=== PATIENT | female | born 1955 | race Caucasian/White ===

== ENCOUNTER → 2017-01-08 | Outpatient (CLI) | payer OTHER ==
[~2017-01-08] VITALS: Ht 170.2 cm; Wt 78.0 kg
[~2017-01-08] MED LIST: LIDOCAINE 2% INJ 100 MG/5 ML SDV (FOR ANES.) As Ordered ONE; NS 1,000 ML IV SCH; PROPOFOL 200 MG/20 ML VIAL As Ordered ONE; TYLE325T5 PO
--- NOTE | 2017-01-08 12:09 | ROOR ---
Patient Name: Clarissa Hurst Procedure Date: 01/08/2017 11:20 AM Date of : 1955 Age: 61 Room: [facility] Gender: Female Note Status: Finalized Procedure: Colonoscopy Indications: Screening in patient at increased risk: Colorectal cancer in child before age 60, (age 25) Providers: Anson CALVIN MD Referring MD: AIXA Gaytan PA-C Requesting Provider: Medicines: Monitored Anesthesia Care Complications: No immediate complications. Procedure: Pre-Anesthesia Assessment: - The heart rate, respiratory rate, oxygen saturations, blood pressure, adequacy of pulmonary ventilation, and response to care were monitored throughout the procedure. The Colonoscope was introduced through the anus and advanced to the cecum, identified by appendiceal orifice and ileocecal valve. The colonoscopy was performed without difficulty. The patient tolerated the procedure well. The quality of the bowel preparation was good. Findings: The digital rectal exam revealed a rubbery-textured rectal mass palpated 4.0 cm from the anal verge. The mass was non-circumferential and located predominantly at the posterior bowel wall. A fungating non-obstructing medium-sized mass was found in the mid rectum. The mass was partially circumferential (involving one-third of the lumen circumference). The mass measured four cm in length. Mucosa was biopsied with a cold forceps for histology. A 15 mm polyp was found in the proximal ascending colon. The polyp was sessile. The polyp was removed with a piecemeal technique using a hot snare. Resection and retrieval were complete. Area was tattooed with an injection of Leta ink. Impression: - Rectal mass 4.0 cm from the anal verge. 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 Biopsied. - One 15 mm polyp in the proximal ascending colon, removed piecemeal using a hot snare. Resected and retrieved. Tattooed. Recommendation: - Refer to a surgeon at appointment to be scheduled. - I will be in touch with you by phone as soon as get thr pathology report back. We will make plans as soon as I get the pathology report back. Anson Calvin MD Anson CALVIN MD 01/08/2017 12:09:03 PM This report has been signed electronically. Number of Addenda: 0 Note Initiated On: 01/08/2017 11:20 AM Estimated Blood Loss: Estimated blood loss: none.
[2017-01-08 12:20] VITALS: BP 131/69
== END ==
LOC: M OPP 10:46
PROVIDERS: ATTEND Internal Medicine Gastroenterology
DX: Z12.11 Encounter for screening for malignant neoplasm of colon (principal); C20 Malignant neoplasm of rectum; K62.89 Other specified diseases of anus and rectum; M54.5 Low back pain; Z80.3 Family history of malignant neoplasm of breast; Z80.0 Family history of malignant neoplasm of digestive organs; F17.210 Nicotine dependence, cigarettes, uncomplicated; Z79.82 Long term (current) use of aspirin; Z79.899 Other long term (current) drug therapy

== ENCOUNTER → 2018-09-16 | Outpatient (REF) | payer OTHER | LOC: M SFHCLACO 15:15 | DX: R31.9 Hematuria, unspecified (principal) | CPT/HCPCS: 87186 ==

== ENCOUNTER → 2018-09-16 | Outpatient (REF) | payer OTHER | LOC: M SFHCLACO 09:38 | DX: R31.9 Hematuria, unspecified (principal) ==

== ENCOUNTER → 2018-09-21 | Outpatient (REF) | payer OTHER ==
[2018-09-21 12:45] LABS: ALBUMIN 4.3 GM/DL (3.2-5.2); ALBUMIN/GLOBULIN RATIO 1.34 (1.00-1.93); ALKALINE PHOSPHATASE 135 U/L (45-117); ALT/SGPT 37 U/L (12-78); ANION GAP 7 MEQ/L (8-16); AST/SGOT 22 U/L (7-37); BILIRUBIN,TOTAL 0.7 MG/DL (0.2-1.0); BLOOD UREA NITROGEN 13 MG/DL (7-18); CALCIUM LEVEL 9.5 MG/DL (8.8-10.2); CARBON DIOXIDE LEVEL 28 MEQ/L (21-32); CHLORIDE LEVEL 103 MEQ/L (98-107); CHOLESTEROL LEVEL 354 MG/DL (<200); CHOLESTEROL RISK RATIO 7.695 (<5); CREATININE FOR GFR 1.08 MG/DL (0.55-1.30); GLOMERULAR FILTRATION RATE 54.9 (>45); GLUCOSE, FASTING 115 MG/DL (70-100); HDL CHOLESTEROL 46 MG/DL (>40); LDL CHOLESTEROL 268 MG/DL (<100); NON-HDL-C 308 MG/DL; POTASSIUM SERUM 4.6 MEQ/L (3.5-5.1); SODIUM LEVEL 138 MEQ/L (136-145); TOTAL PROTEIN 7.5 GM/DL (6.4-8.2); TRIGLYCERIDES LEVEL 199 MG/DL (<150)
[2018-09-21 12:46] LABS: TOTAL 25(OH) VITAMIN D 21.1 NG/ML (30.0-100.0)
== END ==
LOC: M SFHCADAM 08:45
DX: Z00.00 Encounter for general adult medical examination without abnormal findings (principal)

== ENCOUNTER → 2018-10-10 | Outpatient (CLI) | payer OTHER | LOC: M WHC 09:45 | DX: Z12.31 Encounter for screening mammogram for malignant neoplasm of breast (principal); Z78.0 Asymptomatic menopausal state; L72.3 Sebaceous cyst; M81.0 Age-related osteoporosis without current pathological fracture; Z92.89 Personal history of other medical treatment; Z80.3 Family history of malignant neoplasm of breast | CPT/HCPCS: 77067 ==

== ENCOUNTER → 2018-10-11 | Outpatient (CLI) | payer OTHER | LOC: M CARPUL 09:23 | DX: R01.1 Cardiac murmur, unspecified (principal); R09.89 Other specified symptoms and signs involving the circulatory and respiratory systems; I35.8 Other nonrheumatic aortic valve disorders | CPT/HCPCS: 93880 ==

== ENCOUNTER → 2019-01-19 | Outpatient (REF) | payer OTHER ==
[~2019-01-19] MED LIST changes: -LIDOCAINE 2% INJ 100 MG/5 ML SDV (FOR ANES.) As Ordered ONE; -NS 1,000 ML IV SCH; -PROPOFOL 200 MG/20 ML VIAL As Ordered ONE
[2019-01-19 13:25] LABS: BLOOD UREA NITROGEN 7 MG/DL (7-18); CALCIUM LEVEL 8.6 MG/DL (8.8-10.2); CARBON DIOXIDE LEVEL 27 MEQ/L (21-32); CHLORIDE LEVEL 104 MEQ/L (98-107); GLOMERULAR FILTRATION RATE > 60.0 (>45); GLUCOSE, FASTING 105 MG/DL (70-100); POTASSIUM SERUM 4.4 MEQ/L (3.5-5.1); SODIUM LEVEL 139 MEQ/L (136-145)
[2019-01-19 13:26] LABS: ALBUMIN 3.6 GM/DL (3.2-5.2); ALT/SGPT 20 U/L (12-78); CHOLESTEROL LEVEL 264 MG/DL (<200); CHOLESTEROL RISK RATIO 7.333 (<5); HDL CHOLESTEROL 36 MG/DL (>40); LDL CHOLESTEROL 195 MG/DL (<100); NON-HDL-C 228 MG/DL; TOTAL 25(OH) VITAMIN D 56.4 NG/ML (30.0-100.0); TOTAL PROTEIN 7.1 GM/DL (6.4-8.2); TRIGLYCERIDES LEVEL 164 MG/DL (<150)
== END ==
LOC: M SFHCADAM 10:13
PROVIDERS: ATTEND Physician Assistant
DX: E78.2 Mixed hyperlipidemia (principal); E03.9 Hypothyroidism, unspecified; E55.9 Vitamin D deficiency, unspecified

== ENCOUNTER → 2019-04-13 | Outpatient (REF) | payer OTHER ==
[2019-04-13 13:56] LABS: ALBUMIN 3.5 GM/DL (3.2-5.2); ALT/SGPT 20 U/L (12-78); BILIRUBIN,TOTAL 0.5 MG/DL (0.2-1.0); BLOOD UREA NITROGEN 13 MG/DL (7-18); CALCIUM LEVEL 8.4 MG/DL (8.8-10.2); CARBON DIOXIDE LEVEL 27 MEQ/L (21-32); CHLORIDE LEVEL 108 MEQ/L (98-107); CHOLESTEROL LEVEL 178 MG/DL (<200); CHOLESTEROL RISK RATIO 3.296 (<5); CREATININE FOR GFR 0.77 MG/DL (0.55-1.30); GLOMERULAR FILTRATION RATE > 60.0 (>45); GLUCOSE, FASTING 106 MG/DL (70-100); HDL CHOLESTEROL 54 MG/DL (>40); LDL CHOLESTEROL 110 MG/DL (<100); NON-HDL-C 124 MG/DL; POTASSIUM SERUM 4.7 MEQ/L (3.5-5.1); SODIUM LEVEL 141 MEQ/L (136-145); TOTAL 25(OH) VITAMIN D 79.5 NG/ML (30.0-100.0); TOTAL PROTEIN 6.8 GM/DL (6.4-8.2); TRIGLYCERIDES LEVEL 68 MG/DL (<150)
== END ==
LOC: M SFHCADAM 08:12
PROVIDERS: ATTEND Physician Assistant
DX: E78.2 Mixed hyperlipidemia (principal); E03.9 Hypothyroidism, unspecified; E55.9 Vitamin D deficiency, unspecified

== ENCOUNTER → 2019-10-09 | Outpatient (REF) | payer OTHER ==
[2019-10-09 12:57] LABS: TOTAL 25(OH) VITAMIN D 79.5 NG/ML (30.0-100.0)
[2019-10-09 12:59] LABS: ALBUMIN 3.5 GM/DL (3.2-5.2); ALT/SGPT 24 U/L (12-78); BILIRUBIN,TOTAL 0.6 MG/DL (0.2-1.0); BLOOD UREA NITROGEN 13 MG/DL (7-18); CALCIUM LEVEL 8.4 MG/DL (8.8-10.2); CARBON DIOXIDE LEVEL 31 MEQ/L (21-32); CHLORIDE LEVEL 106 MEQ/L (98-107); CHOLESTEROL LEVEL 177 MG/DL (<200); CHOLESTEROL RISK RATIO 3.765 (<5); CREATININE FOR GFR 0.83 MG/DL (0.55-1.30); GLOMERULAR FILTRATION RATE > 60.0 (>45); GLUCOSE, FASTING 132 MG/DL (70-100); HDL CHOLESTEROL 47 MG/DL (>40); LDL CHOLESTEROL 105 MG/DL (<100); NON-HDL-C 130 MG/DL; POTASSIUM SERUM 4.8 MEQ/L (3.5-5.1); SODIUM LEVEL 141 MEQ/L (136-145); TOTAL PROTEIN 6.5 GM/DL (6.4-8.2); TRIGLYCERIDES LEVEL 124 MG/DL (<150)
== END ==
LOC: M SFHCADAM 08:42
PROVIDERS: ATTEND Physician Assistant
DX: E78.2 Mixed hyperlipidemia (principal); E03.9 Hypothyroidism, unspecified; E55.9 Vitamin D deficiency, unspecified

== ENCOUNTER → 2019-10-19 | Outpatient (REF) | payer OTHER | LOC: M SFHCADAM 08:19 | PROVIDERS: ATTEND Physician Assistant | DX: Z00.00 Encounter for general adult medical examination without abnormal findings (principal) ==

== ENCOUNTER → 2019-12-04 | Outpatient (CLI) | payer OTHER ==
--- NOTE | 2019-12-04 12:07 | REPMRS ---
Patient History The patient states she has not had a clinical breast exam in over a year. Family history of breast cancer under age 50 in maternal aunt, breast cancer at age 50 or over in maternal grandmother. Benign excisional biopsy of the left breast, 2007. No Hormone Replacement Therapy Digital Woman Screen Mammo: December 04, 2019 - Exam #: [id number] Bilateral CC and MLO view(s) were taken. Technologist: Alberta Burgos, Technologist Prior study comparison: October 10, 2018, bilateral digital woman screen mammo performed at [facility]. September 06, 2013, digital woman screen mammo performed at [facility]. August 10, 2007, bilateral screening mammogram performed at [facility]. FINDINGS: There are scattered fibroglandular densities. The previously noted nodular density in the medial right breast due to a sebaceous cyst has regressed since the prior study. There are secretory calcifications noted bilaterally somewhat more numerous. There has been no other change in the appearance of the mammogram from the prior studies. There is a mild amount of scattered fibroglandular density which is fairly symmetric. There is no other interval development of dominant mass, architectural distortion, or grouped microcalcification suggestive of malignancy. 3-D tomosynthesis shows no additional findings. Assessment: BI-RADS/ACR category 2 mammogram. Benign Findings. Recommendation Routine screening mammogram of both breasts in 1 year (for women over age 40). This patient's Lifetime Breast Cancer Risk is estimated at 10.6 %. This mammogram was interpreted with the aid of an FDA-approved computer-aided dectection system. Electronically Signed By: Rico Polk MD 12/04/19 [id number]
== END ==
LOC: M WHC 10:30
PROVIDERS: ATTEND Physician Assistant
DX: Z12.31 Encounter for screening mammogram for malignant neoplasm of breast (principal)

== ENCOUNTER → 2020-03-22 | Outpatient (REF) | payer OTHER ==
[2020-03-22 13:40] LABS: ALBUMIN 3.8 GM/DL (3.2-5.2); ALT/SGPT 54 U/L (12-78); BILIRUBIN,TOTAL 0.7 MG/DL (0.2-1.0); BLOOD UREA NITROGEN 13 MG/DL (7-18); CALCIUM LEVEL 9.1 MG/DL (8.8-10.2); CARBON DIOXIDE LEVEL 28 MEQ/L (21-32); CHLORIDE LEVEL 103 MEQ/L (98-107); CHOLESTEROL LEVEL 206 MG/DL (<200); CHOLESTEROL RISK RATIO 4.478 (<5); CREATININE FOR GFR 0.92 MG/DL (0.55-1.30); GLOMERULAR FILTRATION RATE > 60.0 (>45); GLUCOSE, FASTING 147 MG/DL (70-100); HDL CHOLESTEROL 46 MG/DL (>40); LDL CHOLESTEROL 104 MG/DL (<100); NON-HDL-C 160 MG/DL; POTASSIUM SERUM 4.6 MEQ/L (3.5-5.1); SODIUM LEVEL 139 MEQ/L (136-145); TOTAL 25(OH) VITAMIN D 79.1 NG/ML (30.0-100.0); TOTAL PROTEIN 7.1 GM/DL (6.4-8.2); TRIGLYCERIDES LEVEL 282 MG/DL (<150)
[2020-03-22 14:32] LABS: HEMOGLOBIN A1c 8.9 %
== END ==
LOC: M SFHCPLAZ 08:45 → M SFHCADAM 08:56
PROVIDERS: ATTEND Physician Assistant
DX: E78.2 Mixed hyperlipidemia (principal); E03.9 Hypothyroidism, unspecified; E55.9 Vitamin D deficiency, unspecified; E11.65 Type 2 diabetes mellitus with hyperglycemia

== ENCOUNTER → 2020-05-17 | Outpatient (REF) | payer OTHER | LOC: M SFHCLACO 12:53 | PROVIDERS: ATTEND Physician Assistant | DX: E03.9 Hypothyroidism, unspecified (principal) ==

== ENCOUNTER → 2020-09-04 | Outpatient (REF) | payer OTHER ==
[2020-09-04 13:33] LABS: ALBUMIN 3.7 GM/DL (3.2-5.2); ALT/SGPT 26 U/L (12-78); BILIRUBIN,TOTAL 0.5 MG/DL (0.2-1.0); BLOOD UREA NITROGEN 16 MG/DL (7-18); CALCIUM LEVEL 9.1 MG/DL (8.8-10.2); CARBON DIOXIDE LEVEL 27 MEQ/L (21-32); CHLORIDE LEVEL 108 MEQ/L (98-107); CHOLESTEROL LEVEL 191 MG/DL (<200); CHOLESTEROL RISK RATIO 3.603 (<5); CREATININE FOR GFR 0.83 MG/DL (0.55-1.30); GLOMERULAR FILTRATION RATE > 60.0 (>45); GLUCOSE, FASTING 84 MG/DL (70-100); HDL CHOLESTEROL 53 MG/DL (>40); LDL CHOLESTEROL 115 MG/DL (<100); NON-HDL-C 138 MG/DL; POTASSIUM SERUM 5.2 MEQ/L (3.5-5.1); SODIUM LEVEL 141 MEQ/L (136-145); TOTAL PROTEIN 6.7 GM/DL (6.4-8.2); TRIGLYCERIDES LEVEL 116 MG/DL (<150)
[2020-09-04 13:54] LABS: HEMOGLOBIN A1c 6.1 %
== END ==
LOC: M SFHCADAM 07:58
PROVIDERS: ATTEND Physician Assistant
DX: E78.2 Mixed hyperlipidemia (principal); E03.9 Hypothyroidism, unspecified; E11.65 Type 2 diabetes mellitus with hyperglycemia; E55.9 Vitamin D deficiency, unspecified

== ENCOUNTER → 2020-10-10 | Outpatient (CLI) | payer OTHER ==
--- NOTE | 2020-10-10 17:16 | DEXA ---
INDICATION: M[age] AGE REL OSTEOPOROSIS W/O FX. COMPARISON: October 10, 2018, September 06, 2013, and August 19, 2007. TECHNIQUE: Bone density was measured using dual-energy x-ray absorptionmetry (DEXA). FINDINGS: AP SPINE L1-L4 BMD 0.982 g/cm2 Young Adult T-Score -1.9 Age Matched Z-Score -0.4. LT FEMUR, TOTAL BMD 0.623 g/cm2 Young Adult T-Score -3.1 Age Matched Z-Score -1.9. LT NECK BMD 0.654 g/cm2 Young Adult T-Score -2.8 Age Matched Z-Score -1.4. RT FEMUR, TOTAL BMD 0.623 g/cm2 Young Adult T-Score -3.1 Age Matched Z-Score -1.9. RT NECK BMD 0.631 g/cm2 Young Adult T-Score -2.9 Age Matched Z-Score -1.5. IMPRESSION: There is low bone density of the spine. There is osteoporosis of the left hip. There is osteoporosis of the right hip. The density of the spine has increased 5.5% since the initial exam on August 19, 2007. The density of the spine decreased 9.5% since most recent exam on October 10, 2018. The density of the left hip has decreased 3.3% since initial exam on August 19, 2007. The density of the left hip has increase 3.5% since most recent exam on October 10, 2018. The density of the right hip has decreased 6.0% since the initial exam on August 19, 2007. The density of the right hip has increased 2.0% since the most recent exam on October 10, 2018. FOLLOW-UP: Recommendation for the next bone density exam: 2 years. <Electronically signed by Rico Polk > 10/10/20 [id number]
== END ==
LOC: M WHC 08:40
PROVIDERS: ATTEND Physician Assistant
DX: M81.0 Age-related osteoporosis without current pathological fracture (principal); M85.88 Other specified disorders of bone density and structure, other site

== ENCOUNTER → 2020-12-18 | Outpatient (CLI) | payer OTHER ==
--- NOTE | 2020-12-18 10:02 | REPMRS ---
Patient History The patient states she has not had a clinical breast exam in over a year. Family history of breast cancer under age 50 in maternal aunt, breast cancer at age 50 or over in maternal grandmother. Benign excisional biopsy of the left breast, 2007. No Hormone Replacement Therapy 3D TOMOSYNTHESIS WAS PERFORMED. The [facility] lifetime risk for breast cancer is 10.2%. Volpara breast density b. Digital Woman Screen Mammo: December 18, 2020 - Exam #: [id number] Bilateral CC and MLO view(s) were taken. Technologist: Alberta Burgos, Technologist Prior study comparison: December 04, 2019, bilateral digital woman screen mammo performed at [facility]. October 10, 2018, bilateral digital woman screen mammo performed at [facility]. FINDINGS: There are scattered fibroglandular densities. There has been no change in the appearance of the mammogram from the prior studies. There is a mild amount of residual fibroglandular tissue which is fairly symmetric. There is no interval development of dominant mass, architectural distortion, or clustered microcalcification suggestive of malignancy. Assessment: BI-RADS/ACR category 1 mammogram. Negative Mammogram. Recommendation Routine screening mammogram in 1 year (for women over age 40). This mammogram was interpreted with the aid of an FDA-approved computer-aided dectection system. Electronically Signed By: Glenn Cobb MD 12/18/20 [id number]
== END ==
LOC: M WHC 09:08
PROVIDERS: ATTEND Physician Assistant
DX: Z12.31 Encounter for screening mammogram for malignant neoplasm of breast (principal); Z86.018 Personal history of other benign neoplasm

== ENCOUNTER → 2020-12-18 | Outpatient (REF) | payer OTHER ==
[2020-12-18 13:19] LABS: HEMOGLOBIN A1c 5.8 %
[2020-12-18 13:29] LABS: ALT/SGPT 31 U/L (12-78); BILIRUBIN,TOTAL 0.5 MG/DL (0.2-1.0); BLOOD UREA NITROGEN 16 MG/DL (7-18); CALCIUM LEVEL 9.3 MG/DL (8.8-10.2); CARBON DIOXIDE LEVEL 30 MEQ/L (21-32); CHLORIDE LEVEL 108 MEQ/L (98-107); CHOLESTEROL LEVEL 215 MG/DL (<200); CHOLESTEROL RISK RATIO 3.257 (<5); CREATININE FOR GFR 0.84 MG/DL (0.55-1.30); GLOMERULAR FILTRATION RATE > 60.0 (>45); GLUCOSE, FASTING 114 MG/DL (70-100); HDL CHOLESTEROL 66 MG/DL (>40); LDL CHOLESTEROL 126 MG/DL (<100); NON-HDL-C 149 MG/DL; POTASSIUM SERUM 4.8 MEQ/L (3.5-5.1); SODIUM LEVEL 143 MEQ/L (136-145); TOTAL 25(OH) VITAMIN D 48.2 NG/ML (30.0-100.0); TRIGLYCERIDES LEVEL 116 MG/DL (<150)
== END ==
LOC: M SFHCADAM 08:03
PROVIDERS: ATTEND Physician Assistant
DX: E78.2 Mixed hyperlipidemia (principal); E03.9 Hypothyroidism, unspecified; E11.65 Type 2 diabetes mellitus with hyperglycemia; E55.9 Vitamin D deficiency, unspecified

== ENCOUNTER → 2021-01-01 | Outpatient (CLI) | payer OTHER ==
--- NOTE | 2021-01-01 14:50 | REP ---
INDICATION: RT CAROTID BRUIT COMPARISON: 10/11/2018 TECHNIQUE: Cobb scale and color Doppler evaluation using linear high frequency transducer Findings: FINDINGS: Two-dimensional cobb scale and color images demonstrate moderate bilateral atheromatous plaquing with mild turbulent flow noted through the right carotid bulb. Visible narrowing at the right carotid bulb and left proximal internal carotid artery noted. Color Doppler interrogation demonstrates normal arterial wave patterns and velocities with elements of spectral broadening. Normal flow direction is appreciated in the bilateral vertebral arteries. ICA peak systolic velocity: Right 112.1 cm/s; Left 139.9 cm/s ICA diastolic velocity: Right 35.0 cm/s; Left 48.3 cm/s ECA peak systolic velocity: Right 296 cm/s; Left 129 cm/s CCA peak systolic velocity: Right 101.4 cm/s; Left 122.4 cm/s ICA/CCA ratio: Right 1.11 cm/s; Left 1.14 cm/s IMPRESSION: Based on set standards narrowing falls within the less than 50% range through the right carotid bulb and proximal left internal carotid artery. <Electronically signed by Nakul Lebron > 01/01/21 [id number]
== END ==
LOC: M RAD 13:40
PROVIDERS: ATTEND Physician Assistant
DX: R09.89 Other specified symptoms and signs involving the circulatory and respiratory systems (principal)

== ENCOUNTER → 2021-06-26 | Outpatient (REF) | payer OTHER ==
[2021-06-26 13:17] LABS: HEMOGLOBIN A1c 6.2 %
[2021-06-26 13:38] LABS: ALBUMIN 4.2 GM/DL (3.2-5.2); ALT/SGPT 28 U/L (12-78); BILIRUBIN,TOTAL 0.8 MG/DL (0.2-1.0); BLOOD UREA NITROGEN 17 MG/DL (7-18); CALCIUM LEVEL 9.3 MG/DL (8.8-10.2); CARBON DIOXIDE LEVEL 29 MEQ/L (21-32); CHLORIDE LEVEL 108 MEQ/L (98-107); CHOLESTEROL LEVEL 235 MG/DL (<200); CHOLESTEROL RISK RATIO 4.051 (<5); CREATININE FOR GFR 0.81 MG/DL (0.55-1.30); GLOMERULAR FILTRATION RATE > 60.0 (>45); GLUCOSE, FASTING 98 MG/DL (70-100); HDL CHOLESTEROL 58 MG/DL (>40); LDL CHOLESTEROL 147 MG/DL (<100); NON-HDL-C 177 MG/DL; SODIUM LEVEL 141 MEQ/L (136-145); TOTAL 25(OH) VITAMIN D 43.1 NG/ML (30.0-100.0); TOTAL PROTEIN 6.9 GM/DL (6.4-8.2); TRIGLYCERIDES LEVEL 151 MG/DL (<150)
== END ==
LOC: M SFHCADAM 08:07
PROVIDERS: ATTEND Physician Assistant
DX: E78.2 Mixed hyperlipidemia (principal); E03.9 Hypothyroidism, unspecified; E11.65 Type 2 diabetes mellitus with hyperglycemia; E55.9 Vitamin D deficiency, unspecified

== ENCOUNTER → 2021-09-18 | Outpatient (CLI) | payer OTHER ==
[~2021-09-18] MED LIST changes: +ALEN70TA82 PO; +ATOR1TAB21 PO; +CALC250T PO; +ERGO500029 PO; +LEVO50TA5 PO; +METF500T13 PO
== END ==
LOC: M LABSMTC 10:20
PROVIDERS: ATTEND Anesthesiology
DX: Z20.828 Contact with and (suspected) exposure to other viral communicable diseases (principal); Z11.52 Encounter for screening for COVID-19

== ENCOUNTER 2021-09-23 07:26 | Day surgery (SDC) | payer OTHER ==
[~2021-09-23] VITALS: Ht 170.2 cm; Wt 72.6 kg
[~2021-09-23 07:26] MED LIST changes: +LIDOCAINE 2% 100MG/5ML SDV (FOR ANES.) As Ordered ONE; +NS 1,000 ML IV ONE; +propofoL 200 MG/20 ML VIAL As Ordered ONE
--- OUTSIDE RECORDS SUMMARY | 2021-09-23 07:34 | CCD ---
Author Author [facility] Organization [facility] Address Unknown Phone Unavailable Care Team Providers Care Employee Service Officer Name Role Phone Bradley, Dulce MARKETING INTELLIGENCE ANALYST Unavailable Unavailable Bradley, Dulce MARKETING INTELLIGENCE ANALYST Unavailable Unavailable Bradley, Dulce MARKETING INTELLIGENCE ANALYST Unavailable Unavailable Bradley, Dulce MARKETING INTELLIGENCE ANALYST Unavailable Unavailable Bradley, Dulce MARKETING INTELLIGENCE ANALYST Unavailable Unavailable Bradley, Dulce MARKETING INTELLIGENCE ANALYST Unavailable Unavailable Bradley, Dulce MARKETING INTELLIGENCE ANALYST Unavailable Unavailable Bradley, Dulce MARKETING INTELLIGENCE ANALYST Unavailable Unavailable Bradley, Dulce MARKETING INTELLIGENCE ANALYST Unavailable Unavailable Bradley, Dulce MARKETING INTELLIGENCE ANALYST Unavailable Unavailable Bradley, Dulce MARKETING INTELLIGENCE ANALYST Unavailable Unavailable Bradley, Dulce MARKETING INTELLIGENCE ANALYST Unavailable Unavailable Bradley, Dulce MARKETING INTELLIGENCE ANALYST Unavailable Unavailable Bradley, Dulce MARKETING INTELLIGENCE ANALYST Unavailable Unavailable Bradley, Dulce MARKETING INTELLIGENCE ANALYST Unavailable Unavailable Bradley, Dulce MARKETING INTELLIGENCE ANALYST Unavailable Unavailable Bradley, Dulce MARKETING INTELLIGENCE ANALYST Unavailable Unavailable Bradley, Dulce MARKETING INTELLIGENCE ANALYST Unavailable Unavailable Bradley, Dulce MARKETING INTELLIGENCE ANALYST Unavailable Unavailable Bradley, Dulce MARKETING INTELLIGENCE ANALYST Unavailable Unavailable Bradley, Dulce MARKETING INTELLIGENCE ANALYST Unavailable Unavailable Bradley, Dulce MARKETING INTELLIGENCE ANALYST Unavailable Unavailable Bradley, Dulce MARKETING INTELLIGENCE ANALYST Unavailable Unavailable Bradley, Dulce MARKETING INTELLIGENCE ANALYST Unavailable Unavailable Bradley, Dulce MARKETING INTELLIGENCE ANALYST Unavailable Unavailable Bradley, Dulce MARKETING INTELLIGENCE ANALYST Unavailable Unavailable Bradley, Dulce MARKETING INTELLIGENCE ANALYST Unavailable Unavailable Bradley, Dulce MARKETING INTELLIGENCE ANALYST Unavailable Unavailable Bradley, Dulce MARKETING INTELLIGENCE ANALYST Unavailable Unavailable Bradley, Dulce MARKETING INTELLIGENCE ANALYST Unavailable Unavailable Bradley, Dulce MARKETING INTELLIGENCE ANALYST Unavailable Unavailable Bradley, Dulce MARKETING INTELLIGENCE ANALYST Unavailable Unavailable Bradley, Dulce MARKETING INTELLIGENCE ANALYST Unavailable Unavailable Bradley, Dulce MARKETING INTELLIGENCE ANALYST Unavailable Unavailable Bradley, Dulce MARKETING INTELLIGENCE ANALYST Unavailable Unavailable Bradley, Dulec MARKETING INTELLIGENCE ANALYST Unavailable Unavailable Re-disclosure Warning The records that you are about to access may contain information from federally-assisted alcohol or drug abuse programs. If such information is present, then the following federally mandated warning applies: This information has been disclosed to you from records protected by federal confidentiality rules (42 CFR part 2). The federal rules prohibit you from making any further disclosure of this information unless further disclosure is expressly permitted by the written consent of the person to whom it pertains or as otherwise permitted by 42 CFR part 2. A general authorization for the release of medical or other information is NOT sufficient for this purpose. The Federal rules restrict any use of the information to criminally investigate or prosecute any alcohol or drug abuse patient.The records that you are about to access may contain highly sensitive health information, the redisclosure of which is protected by Article 27-F of the [facility] Public Health law. If you continue you may have access to information: Regarding HIV / AIDS; Provided by facilities licensed or operated by the [facility] Office of Mental Health; or Provided by the [facility] Office for People With Developmental Disabilities. If such information is present, then the following [facility] mandated warning applies: This information has been disclosed to you from confidential records which are protected by state law. State law prohibits you from making any further disclosure of this information without the specific written consent of the person to whom it pertains, or as otherwise permitted by law. Any unauthorized further disclosure in violation of state law may result in a fine or intermediate sentence or both. A general authorization for the release of medical or other information is NOT sufficient authorization for further disc losure. Family History Family Member Name Family Member Gender Family Member Status Date o f Status Description Data Source(s) Unknown Unknown Problem MEDENT ([facility]) Unknown Unknown Problem MEDENT ([facility] ) Unknown Female Problem MEDENT ([facility] Encounters Encounter Providers Location Date Indications Data Source(s ) Outpatient [address] [facility] [id number] 09/12/2021 12:00:00 AM EDT eCW1 ([facility]) Unknown [address] [facility] [address] 08/12/2021 12:00:00 AM EDT eCW1 ([facility]) Outpatient Attender: Concetta Diaz [facility] Main Office 08/06/2021 10:00:00 AM EDT MEDENT ([facility]) Unknown [address] [facility] [address] 07/31/2021 12:00:00 AM EDT eCW1 ([facility]) Outpatient [address] [facility] [address] 07/07/2021 12:00:00 AM EDT eCW1 ([facility]) Unknown [address] [facility] [address] 04/09/2021 12:00:00 AM EDT eCW1 ([facility]) Outpatient [address] [facility] [address] 12/25/2020 12:00:00 AM EST eCW1 ([facility]) Unknown [address] [facility] [address] 12/25/2020 12:00:00 AM EST eCW1 ([facility]) Unknown [address] [facility] [place] [address] 12/10/2020 12:00:00 AM EST eCW1 ([facility]) Unknown [address] [facility] [place] [address] 10/01/2020 12:00:00 AM EST eCW1 ([facility]) Outpatient [address] [facility] [place] [address] 09/11/2020 12:00:00 AM EDT eCW1 ([facility]) Immunizations Vaccine Date Status Description Data Source(s) COVID-19 VACC,MRNA(MODERNA)/PF 03/12/2021 12:00:00 AM EDT completed [facility] COVID-19 VACCINE Moderna 03/12/2021 12:00:00 AM EDT completed [facility] Vaccine Series Complete: YESThis Data wa s Submitted to [facility] Via [facility]. COVID-19 VACCINE Moderna 02/08/2021 12:00:00 AM EST completed [facility] Vaccine Series Complete: NOThis Data was Submitted to [facility] Via [employer]. COVID-19 VACCINE, MRNA-1273, LNP-S (MODERNA)/PF 02/08/2021 1 2:00:00 AM EST completed [facility] Medications Medication Brand Name Start Date Product Form Dose Route Admi nistrative Instructions Pharmacy Instructions Status Indications Reaction Description Data Source(s) 250 mg calcium 08/27/2021 12:00:00 AM EDT tablet 120 TAKE TWO TABLETS BY MOUTH TWICE A DAY WITH FOOD TAKE TWO TABLETS BY MOUTH TWICE A DAY WITH FOOD SOLD: 08/30/2021 [facility] 50 mcg 08/26/2021 12:00:00 AM EDT tablet 30 TAKE ONE TABLET BY MOUTH EVERY MORNING ON EMPTY STOMACH TAKE ONE TABLET BY MOUTH EVERY MORNING O N EMPTY STOMACH SOLD: 08/30/2021 [facility] 500 mg 08/13/2021 12:00:00 AM EDT tablet 30 TAKE ONE TABLET BY MOUTH EVERY DAY WITH A MEAL TAKE ONE TABLET BY MOUTH EVERY DAY WITH A MEAL SOLD: 021 [facility] 500 mg 08/13/2021 12:00:00 AM EDT tablet 30 TAKE ONE TABLET BY MOUTH EVERY DAY WITH A MEAL TAKE ONE TABLET BY MOUTH EVERY DAY WITH A MEAL SOLD: [facility] 70 mg 08/13/2021 12:00:00 AM EDT tablet 4 TAKE 1TAB BY MOUTH ONCE WEEKLY TAKE 1TAB BY MOUTH ONCE WEEKLY SOLD: 08/15/2021 [facility] 70 mg 08/13/2021 12:00:00 AM EDT tablet 4 TAKE 1TAB BY MOUTH ONCE WEEKLY TAKE 1TAB BY MOUTH ONCE WEEKLY SOLD: 09/12/2021 [facility] 50 mcg 08/03/2021 12:00:00 AM EDT tablet 30 TAKE ONE TABLET BY MOUTH EVERY MORNING ON EMPTY STOMACH TAKE ONE TABLET BY MOUTH EVERY MORNING O N EMPTY STOMACH SOLD: 08/03/2021 [facility] atorvastatin 20 MG Oral Tablet ATORVASTATIN CALCIUM 07/08/2021 1 2:00:00 AM EDT tablet 90 TAKE ONE TABLET BY MOUTH EVERY D AY TAKE ONE TABLET BY MOUTH EVERY DAY SOLD: 07/11/2021 [facility] atorvastatin 20 MG Oral Tablet Atorvastatin Calcium 20 MG Atorvastatin Calcium 20 MG 07/07/2021 12:00:00 AM EDT 1.0 {tablet} activ e Atorvastatin Calcium 20 MG eCW1 ([facility]) atorvastatin 20 MG Oral Tablet Atorvastatin Calcium 20 MG Atorvastatin Calcium 20 MG 07/07/2021 12:00:00 AM EDT 1.0 {tablet} activ e Atorvastatin Calcium 20 MG eCW1 ([facility]) atorvastatin 20 MG Oral Tablet Atorvastatin Calcium 20 MG Atorvastatin Calcium 20 MG 07/07/2021 12:00:00 AM EDT 1.0 {tablet} activ e Atorvastatin Calcium 20 MG eCW1 ([facility]) atorvastatin 20 MG Oral Tablet Atorvastatin Calcium 20 MG Atorvastatin Calcium 20 MG 07/07/2021 12:00:00 AM EDT 1.0 {tablet} activ e Atorvastatin Calcium 20 MG eCW1 ([facility]) Magnesium Hydroxide 80 MG/ML Oral Suspension Milk Of Magnesi a 06/12/2021 12:00:00 AM EDT ORAL active M HAWA ([facility], ) Suprep Bowel Prep Kit Suprep Bowel Prep Kit 06/12/2021 12:00:00 AM EDT active MEDENT ([facility], ) SUPREP BOWEL PREP KIT 17.5-3.13-1.6 gram SODIUM, POTASSIUM,M AG SULFATES 06/12/2021 12:00:00 AM EDT recon soln 354 TAKE PER DOCTOR'S BOWEL PREP INSTRUCTIONS TAKE PER DOCTOR'S BOWEL PREP INSTRUCTIONS SOLD: 06/14/2021 [facility] 500 mg 05/14/2021 12:00:00 AM EDT tablet 90 TAKE ONE TABLET BY MOUTH EVERY DAY WITH FOOD TAKE ONE TABLET BY MOUTH EVERY DAY WITH FOOD SOLD: 05/15/2021 [facility] 70 mg 04/11/2021 12:00:00 AM EDT tablet 4 TAKE 1 TABLET BY MOUTH ONCE A WEEK TAKE 1 TABLET BY MOUTH ONCE A WEEK SOLD: 05/14/2021 [facility] 70 mg 04/11/2021 12:00:00 AM EDT tablet 4 TAKE 1 TABLET BY MOUTH ONCE A WEEK TAKE 1 TABLET BY MOUTH ONCE A WEEK SOLD: 07/18/2021 [facility] 70 mg 04/11/2021 12:00:00 AM EDT tablet 4 TAKE 1 TABLET BY MOUTH ONCE A WEEK TAKE 1 TABLET BY MOUTH ONCE A WEEK SOLD: 06/12/2021 [facility] 70 mg 04/11/2021 12:00:00 AM EDT tablet 4 TAKE 1 TABLET BY MOUTH ONCE A WEEK TAKE 1 TABLET BY MOUTH ONCE A WEEK SOLD: 04/12/2021 [facility] 50 mcg 03/27/2021 12:00:00 AM EDT tablet 30 TAKE ONE TABLET BY MOUTH EVERY MORNING ON AN EMPTY STOMACH TAKE ONE TABLET BY MOUTH EVERY MORNING O N AN EMPTY STOMACH SOLD: 04/25/2021 [facility] 50 mcg 03/27/2021 12:00:00 AM EDT tablet 30 TAKE ONE TABLET BY MOUTH EVERY MORNING ON AN EMPTY STOMACH TAKE ONE TABLET BY MOUTH EVERY MORNING O N AN EMPTY STOMACH SOLD: 06/28/2021 [facility] 50 mcg 03/27/2021 12:00:00 AM EDT tablet 30 TAKE ONE TABLET BY MOUTH EVERY MORNING ON AN EMPTY STOMACH TAKE ONE TABLET BY MOUTH EVERY MORNING O N AN EMPTY STOMACH SOLD: 05/29/2021 [facility] atorvastatin 10 MG Oral Tablet ATORVASTATIN CALCIUM 02/20/2021 1 2:00:00 AM EDT tablet 30 TAKE ONE TABLET BY MOUTH EVERY D AY TAKE ONE TABLET BY MOUTH EVERY DAY SOLD: 02/22/2021 [facility] atorvastatin 10 MG Oral Tablet ATORVASTATIN CALCIUM 02/20/2021 1 2:00:00 AM EDT tablet 30 TAKE ONE TABLET BY MOUTH EVERY D AY TAKE ONE TABLET BY MOUTH EVERY DAY SOLD: 05/29/2021 [facility] atorvastatin 10 MG Oral Tablet ATORVASTATIN CALCIUM 02/20/2021 1 2:00:00 AM EDT tablet 30 TAKE ONE TABLET BY MOUTH EVERY D AY TAKE ONE TABLET BY MOUTH EVERY DAY SOLD: 04/25/2021 [facility] 250 mg calcium 11/09/2020 12:00:00 AM EST tablet 120 TAKE TWO TABLETS BY MOUTH TWICE A DAY TAKE WITH FOOD TAKE TWO TABLETS BY MOUTH TWICE A DAY TA KE WITH FOOD SOLD: 03/04/2021 [facility] 250 mg calcium 11/09/2020 12:00:00 AM EST tablet 120 TAKE TWO TABLETS BY MOUTH TWICE A DAY TAKE WITH FOOD TAKE TWO TABLETS BY MOUTH TWICE A DAY TA KE WITH FOOD SOLD: 01/09/2021 [facility] 250 mg calcium 11/09/2020 12:00:00 AM EST tablet 120 TAKE TWO TABLETS BY MOUTH TWICE A DAY TAKE WITH FOOD TAKE TWO TABLETS BY MOUTH TWICE A DAY TA KE WITH FOOD SOLD: 05/14/2021 [facility] 250 mg calcium 11/09/2020 12:00:00 AM EST tablet 120 TAKE TWO TABLETS BY MOUTH TWICE A DAY TAKE WITH FOOD TAKE TWO TABLETS BY MOUTH TWICE A DAY TA WITH FOOD SOLD: 11/09/2020 [facility] 250 mg calcium 11/09/2020 12:00:00 AM EST tablet 120 TAKE TWO TABLETS BY MOUTH TWICE A DAY TAKE WITH FOOD TAKE TWO TABLETS BY MOUTH TWICE A DAY TA WITH FOOD SOLD: 06/14/2021 [facility] Metformin hydrochloride 500 MG Oral Tablet METFORMIN HCL 11/08/2020 12:00:00 AM EST tablet 90 TAKE ONE TABLET BY MOUTH LESLIE RY DAY WITH A MEAL TAKE ONE TABLET BY MOUTH EVERY DAY WITH A MEAL SOLD: 02/06/2021 [facility] 500 mg 11/08/2020 12:00:00 AM EST tablet 90 TAKE ONE TABLET BY MOUTH EVERY DAY WITH A MEAL TAKE ONE TABLET BY MOUTH EVERY DAY WITH A MEAL SOLD: 020 [facility] 50 mcg 10/19/2020 12:00:00 AM EST tablet 30 TAKE 1 TABLET BY MOUTH ON EMPTY STOMACH ONCE DAILY IN THE MORNING TAKE 1 TABLET BY MOUTH ON EMPTY STOMACH ONCE DAILY IN THE MORNING SOLD: 11/19/2020 [facility] 50 mcg 10/19/2020 12:00:00 AM EST tablet 30 TAKE 1 TABLET BY MOUTH ON EMPTY STOMACH ONCE DAILY IN THE MORNING TAKE 1 TABLET BY MOUTH ON EMPTY STOMACH ONCE DAILY IN THE MORNING SOLD: 01/21/2021 [facility] 50 mcg 10/19/2020 12:00:00 AM EST tablet 30 TAKE 1 TABLET BY MOUTH ON EMPTY STOMACH ONCE DAILY IN THE MORNING TAKE 1 TABLET BY MOUTH ON EMPTY STOMACH ONCE DAILY IN THE MORNING SOLD: 10/22/2020 [facility] 50 mcg 10/19/2020 12:00:00 AM EST tablet 30 TAKE 1 TABLET BY MOUTH ON EMPTY STOMACH ONCE DAILY IN THE MORNING TAKE 1 TABLET BY MOUTH ON EMPTY STOMACH ONCE DAILY IN THE MORNING SOLD: 02/22/2021 [facility] 50 mcg 10/19/2020 12:00:00 AM EST tablet 30 TAKE 1 TABLET BY MOUTH ON EMPTY STOMACH ONCE DAILY IN THE MORNING TAKE 1 TABLET BY MOUTH ON EMPTY STOMACH ONCE DAILY IN THE MORNING SOLD: 12/20/2020 [facility] 70 mg 10/07/2020 12:00:00 AM EST tablet 4 TAKE 1 TABLET BY MOUTH ONCE WEEKLY TAKE 1 TABLET BY MOUTH ONCE WEEKLY SOLD: 02/06/2021 [facility] 70 mg 10/07/2020 12:00:00 AM EST tablet 4 TAKE 1 TABLET BY MOUTH ONCE WEEKLY TAKE 1 TABLET BY MOUTH ONCE WEEKLY SOLD: 12/08/2020 [facility] 1,250 mcg (50,000 unit) 10/07/2020 12:00:00 AM EST capsule 3 TAKE 1 CAPSULE BY MOUTH ONCE MONTHLY TAKE 1 CAPSULE BY MOUTH ONCE MONTHLY SOLD: 03/04/2021 [facility] 1,250 mcg (50,000 unit) 10/07/2020 12:00:00 AM EST capsule 3 TAKE 1 CAPSULE BY MOUTH ONCE MONTHLY TAKE 1 CAPSULE BY MOUTH ONCE MONTHLY SOLD: 08/30/2021 [facility] 1,250 mcg (50,000 unit) 10/07/2020 12:00:00 AM EST capsule 3 TAKE 1 CAPSULE BY MOUTH ONCE MONTHLY TAKE 1 CAPSULE BY MOUTH ONCE MONTHLY SOLD: 06/12/2021 [facility] 70 mg 10/07/2020 12:00:00 AM EST tablet 4 TAKE 1 TABLET BY MOUTH ONCE WEEKLY TAKE 1 TABLET BY MOUTH ONCE WEEKLY SOLD: 11/09/2020 [facility] 70 mg 10/07/2020 12:00:00 AM EST tablet 4 TAKE 1 TABLET BY MOUTH ONCE WEEKLY TAKE 1 TABLET BY MOUTH ONCE WEEKLY SOLD: 03/04/2021 [facility] 1,250 mcg (50,000 unit) 10/07/2020 12:00:00 AM EST capsule 3 TAKE 1 CAPSULE BY MOUTH ONCE MONTHLY TAKE 1 CAPSULE BY MOUTH ONCE MONTHLY SOLD: 10/08/2020 [facility] 70 mg 10/07/2020 12:00:00 AM EST tablet 4 TAKE 1 TABLET BY MOUTH ONCE WEEKLY TAKE 1 TABLET BY MOUTH ONCE WEEKLY SOLD: 01/09/2021 [facility] 70 mg 10/07/2020 12:00:00 AM EST tablet 4 TAKE 1 TABLET BY MOUTH ONCE WEEKLY TAKE 1 TABLET BY MOUTH ONCE WEEKLY SOLD: 10/08/2020 [facility] atorvastatin 10 MG Oral Tablet ATORVASTATIN CALCIUM 08/09/2020 1 2:00:00 AM EDT tablet 30 TAKE ONE TABLET BY MOUTH EVERY D AY TAKE ONE TABLET BY MOUTH EVERY DAY SOLD: 01/21/2021 [facility] atorvastatin 10 MG Oral Tablet ATORVASTATIN CALCIUM 08/09/2020 1 2:00:00 AM EDT tablet 30 TAKE ONE TABLET BY MOUTH EVERY D AY TAKE ONE TABLET BY MOUTH EVERY DAY SOLD: 09/07/2020 [facility] atorvastatin 10 MG Oral Tablet ATORVASTATIN CALCIUM 08/09/2020 1 2:00:00 AM EDT tablet 30 TAKE ONE TABLET BY MOUTH EVERY D AY TAKE ONE TABLET BY MOUTH EVERY DAY SOLD: 08/10/2020 [facility] atorvastatin 10 MG Oral Tablet ATORVASTATIN CALCIUM 08/09/2020 1 2:00:00 AM EDT tablet 30 TAKE ONE TABLET BY MOUTH EVERY D AY TAKE ONE TABLET BY MOUTH EVERY DAY SOLD: 11/09/2020 [facility] atorvastatin 10 MG Oral Tablet ATORVASTATIN CALCIUM 08/09/2020 1 2:00:00 AM EDT tablet 30 TAKE ONE TABLET BY MOUTH EVERY D AY TAKE ONE TABLET BY MOUTH EVERY DAY SOLD: 12/20/2020 [facility] atorvastatin 10 MG Oral Tablet ATORVASTATIN CALCIUM 08/09/2020 1 2:00:00 AM EDT tablet 30 TAKE ONE TABLET BY MOUTH EVERY D AY TAKE ONE TABLET BY MOUTH EVERY DAY SOLD: 10/08/2020 [facility] Metformin hydrochloride 500 MG Oral Tablet METFORMIN HCL 05/18/2020 12:00:00 AM EDT tablet 90 TAKE 1 TABLET BY MOUTH ONCE A DAY WITH A MEAL TAKE 1 TABLET BY MOUTH ONCE A DAY WITH A MEAL SOLD: 08/20/2020 [facility] 50 mcg 04/24/2020 12:00:00 AM EDT tablet 30 TAKE ONE TABLET BY MOUTH EVERY MORNING ON EMPTY STOMACH TAKE ONE TABLET BY MOUTH EVERY MORNING O N EMPTY STOMACH SOLD: 08/20/2020 [facility] 50 mcg 04/24/2020 12:00:00 AM EDT tablet 30 TAKE ONE TABLET BY MOUTH EVERY MORNING ON EMPTY STOMACH TAKE ONE TABLET BY MOUTH EVERY MORNING O N EMPTY STOMACH SOLD: 09/21/2020 [facility] 250 mg calcium 04/11/2020 12:00:00 AM EDT tablet 120 TAKE TWO TABLETS BY MOUTH TWICE A DAY WITH FOOD TAKE TWO TABLETS BY MOUTH TWICE A DAY WITH FOOD SOLD: 08/10/2020 [facility] 250 mg calcium 04/11/2020 12:00:00 AM EDT tablet 120 TAKE TWO TABLETS BY MOUTH TWICE A DAY WITH FOOD TAKE TWO TABLETS BY MOUTH TWICE A DAY WITH FOOD SOLD: 09/07/2020 [facility] 1,250 mcg (50,000 unit) 04/10/2020 12:00:00 AM EDT capsule 4 TAKE ONE CAPSULE BY MOUTH EVERY WEEK TAKE ONE CAPSULE BY MOUTH EVERY WEEK SOLD: 09/07/2020 [facility] 1,250 mcg (50,000 unit) 04/10/2020 12:00:00 AM EDT capsule 4 TAKE ONE CAPSULE BY MOUTH EVERY WEEK TAKE ONE CAPSULE BY MOUTH EVERY WEEK SOLD: 08/10/2020 [facility] 70 mg 04/10/2020 12:00:00 AM EDT tablet 4 TAKE ONE TABLET BY MOUTH EVERY WEEK TAKE ONE TABLET BY MOUTH EVERY WEEK SOLD: 09/07/2020 [facility] 70 mg 04/10/2020 12:00:00 AM EDT tablet 4 TAKE ONE TABLET BY MOUTH EVERY WEEK TAKE ONE TABLET BY MOUTH EVERY WEEK SOLD: 08/10/2020 [facility] Insurance Providers Payer name Policy type / Coverage type Policy ID Covered libertarian ID Covered libertarian's relationship to prather Policy Prather Plan Information [facility] [id number] SP [id number] [facility] [id number] SP [id number] ANSI-Commercial [id number] ANSI-Commercial [id number] ANSI-Commercial [id number] ANSI-Commercial [id number] ANSI-Commercial [id number] ANSI-Commercial [id number] ANSI-Commercial [id number] ANSI-Commercial [id number] ANSI-Commercial [id number] ANSI-Commercial [id number] ANSI-Commercial [id number] ANSI-Not a Secondary Insurance [id number] ANSI-Not a Secondary Insurance [id number] ANSI-Commercial [id number] ANSI-Not a Secondary Insurance [id number] ANSI-Commercial [id number] [facility] [id number] SP [id number] [employer] PI PI [employer] [id number] Ellyn [id number] [employer] [id number] Ellyn [id number] [employer] HEA [id number] [employer] (HMO) [id number] Self [employer] [id number] SP [id number] [facility] [id number] SP [id number] [employer] [id number] Self ID IDENTIFICATION [id number] Other Insurance [id number] Problems, Conditions, and Diagnoses Code Display Name Description Problem Type Effective Dates Data Source(s) C44.329 [id number] Squamous cell cancer of skin of left babar k Problem 09/12/2021 12:00:00 AM EDT eCW1 ([facility]) C44.229 [id number] 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 Problem 08/14/2021 12:00:00 AM EDT eCW1 ([facility]) G44.82 [id number] Coital headache Problem 07/07/2021 12:00:00 AM EDT eCW1 ([facility]) Surgeries/Procedures Procedure Description Date Indications Data Source(s) Shave Biopsy Of Skin, Single Lesion 08/06/2021 12:00:0 0 AM EDT MEDENT ([facility]) OFFICE OUTPATIENT VISIT 25 MINUTES 08/06/2021 12:00:00 AM EDT MEDENT ([facility]) DOT Exams 04/12/2021 04/12/2021 12:00:00 AM EDT 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[facility]) SIGMOIDOSCOPY FLX DX W/WO COLLJ SPECIMENS 11/20/2020 1 2:00:00 AM EST MEDENT ([facility]) Results ID Date Data Source [id number] 08/06/2021 10:32:00 AM EDT MEDENT ([facility]) Name Value Range Interpretation Code Description Data Haley rce(s) Supporting Document(s) Laboratory test finding (navigational concept) Laboratory test result MEDENT ([facility]) Refer to Dr Stanford letter awaiting sign ature LW 08/11/21 photo emailed, letter sent, awaiting appt LW 08/12/21 PER KEYANNA PT IS NOT YET SCHEDULED LW 08/14/21 pt is going to call and see if she can schedule and will let me know LW 08/25/21 (WedAug 25) 10:19 AM Ping Randall PT IS SCHEDULE 09/12/21 FOR CONSULT AND SCHEDULED FOR 11/04/21 AND 11/05/21 FOR SURGERIES Laboratory test finding (navigational concept) Laboratory test result MEDENT ([facility]) Refer to Dr Stanford letter awaiting sign ature LW 08/11/21 photo emailed, letter sent, awaiting appt LW 08/12/21 PER KEYANNA PT IS NOT YET SCHEDULED LW 08/14/21 pt is going to call and see if she can schedule and will let me know LW 08/25/21 (WedAug 25) 10:19 AM Ping Randall PT IS SCHEDULE 09/12/21 FOR CONSULT AND SCHEDULED FOR 11/04/21 AND 11/05/21 FOR SURGERIES ID Date Data Source [id number] 04/12/2021 12:00:00 AM EDT 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[facility]) Name Value Range Interpretation Code Description Data Haley rce(s) Supporting Document(s) Glucose [Mass/volume] in Serum or Plasma Negative Glucose: Negative 04/12/2021 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[facility]) ID Date Data Source [id number] 04/12/2021 12:00:00 AM EDT 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[facility]) Name Value Range Interpretation Code Description Data Haley rce(s) Supporting Document(s) Bilirubin.total [Mass/volume] in Serum or Plasma Negative Bilirubin: Negative 04/12/2021 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[facility]) ID Date Data Source [id number] 04/12/2021 12:00:00 AM EDT 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[facility]) Name Value Range Interpretation Code Description Data Haley rce(s) Supporting Document(s) Ketone Negative Ketone: Negative 04/12/20 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[facility]) ID Date Data Source [id number] 04/12/2021 12:00:00 AM EDT 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[facility]) Name Value Range Interpretation Code Description Data Haley rce(s) Supporting Document(s) Specific gravity of Urine 1.015 Specific G ravity: 1.015 04/12/2021 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[facility]) ID Date Data Source [id number] 04/12/2021 12:00:00 AM EDT 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[facility]) Name Value Range Interpretation Code Description Data Haley rce(s) Supporting Document(s) Hemoglobin [Presence] in Urine Negative Blood (Urine): Negative 04/12/2021 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[facility]) ID Date Data Source [id number] 04/12/2021 12:00:00 AM EDT 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[facility]) Name Value Range Interpretation Code Description Data Haley rce(s) Supporting Document(s) pH of Blood 6.5 pH: 6.5 04/12/2021 CHARTMAKE R ([facility]) ID Date Data Source [id number] 04/12/2021 12:00:00 AM EDT 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[facility]) Name Value Range Interpretation Code Description Data Haley rce(s) Supporting Document(s) Protein [Mass/volume] in Serum or Plasma Negative Protein: Negative 04/12/2021 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[facility]) ID Date Data Source [id number] 04/12/2021 12:00:00 AM EDT 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[facility]) Name Value Range Interpretation Code Description Data Haley rce(s) Supporting Document(s) Urobilinogen [Mass/volume] in Urine 0.2 mg/dL Urobilinogen: 0.2 mg/dL 04/12/2021 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[facility]) ID Date Data Source [id number] 04/12/2021 12:00:00 AM EDT 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[facility]) Name Value Range Interpretation Code Description Data Haley rce(s) Supporting Document(s) Nitrite [Presence] in Urine Positive Nitrite: Positive 04/12/2021 CHARTCTKER ([facility]) ID Date Data Source [id number] 04/12/2021 12:00:00 AM EDT 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[facility]) Name Value Range Interpretation Code Description Data Haley rce(s) Supporting Document(s) Leukocytes [#/volume] in Blood Large Leuko cytes: Large 04/12/2021 [facility] ID Date Data Source [id number] 11/20/2020 03:06:00 PM EST MEDENT ([facility]) Name Value Range Interpretation Code Description Data Haley rce(s) Supporting Document(s) Carcinoembryonic Ag [Mass/volume] in Serum or Plasma 1.8 ng/mL 0.0-1 0.1 MEDENT ([facility]) CEA REFERENCE RANGE: NON-SMOKERS 0.0 - 5.0 NG/ML SMOKERS 0.0 - 10.1 NG/ML SERUM CEA LEVEL SHOULD NOT BE INTERPRETED ABSOLUTE EVIDENCE FOR THE PRESENCE OR ABSENCE OF MALIGNANCY. METHOD IS ADVSidewayz PizzaAUR XPT CHEMILUMINOMETRIC IMMUNOASSAY. VALUES OBTAINED WITH DIFFERENT ASSAY METHODS OR KITS CANNOT BE USED INTERCHANGEABLY. ID Date Data Source [id number] 11/20/2020 07:24:52 PM EST [facility] Name Value Range Interpretation Code Description Data Haley rce(s) Supporting Document(s) CEA @ 1.8 ng/mL (0.0-10.1) Laboratory [facility] CEA REFERENCE RANGE: NON-SMOKERS 0.0 - 5.0 NG/ML SMOKERS 0.0 - 10.1 NG/MLSERUM CEA LEVEL SHOULD NOT BE INTERPRETEDAS ABSOLUTE EVIDENCE FOR THE PRESENCEOR ABSENCE OF MALIGNANCY. METHODIS ADVSidewayz PizzaAUR XPT CHEMILUMINOMETRICIMMUNOASSAY. VALUES OBTAINED WITHDIFFERENT ASSAY METHODS OR KITS CANNOTBE USED INTERCHANGEABLY. Procedure Social History Code Duration Value Status Description Data Source(s ) Smoking 09/12/2021 12:00:00 AM EDT Current Smoker completed Curre nt Smoker eCW1 ([facility]) Smoking 07/27/2021 12:00:00 AM EDT Current Smoker completed Curre nt Smoker eCW1 ([facility]) Smoking 07/27/2021 12:00:00 AM EDT Current Smoker completed Curre nt Smoker eCW1 ([facility]) Smoking 07/27/2021 12:00:00 AM EDT Current Smoker completed Curre nt Smoker eCW1 ([facility]) Smoking 04/12/2021 12:00:00 AM EDT Smoker, current status unkn own completed Smoker, current status unknown 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[facility]) Smoking 01/06/2021 12:00:00 AM EST Current Smoker completed Curre nt Smoker eCW1 ([facility]) Smoking 01/06/2021 12:00:00 AM EST Current Smoker completed Curre nt Smoker eCW1 ([facility]) Smoking 12/25/2020 12:00:00 AM EST Current Smoker completed Curre nt Smoker eCW1 ([facility]) Smoking 09/11/2020 12:00:00 AM EDT Current Smoker completed Curre nt Smoker eCW1 ([facility]) Smoking 09/11/2020 12:00:00 AM EDT Current Smoker completed Curre nt Smoker eCW1 ([facility]) Smoking 09/11/2020 12:00:00 AM EDT Current Smoker completed Curre nt Smoker eCW1 ([facility]) Vital Signs ID Date Data Source UNK Name Value Range Interpretation Code Description Data Source(s) Body weight 168.6 [lb_av] 168.6 [lb_av] eCW1 ([facility]) Systolic blood pressure 135 mm[Hg] 135 mm[Hg] e CW1 ([facility]) Diastolic blood pressure 75 mm[Hg] 75 mm[Hg] eCW1 ([facility]) Body weight 76.48 kg 76.48 kg eCW1 ([facility]) Body height 66 [in_i] 66 [in_i] eCW1 ([facility]) Body mass index (BMI) [Ratio] 27.21 kg/m2 27.21 kg/m2 W1 ([facility]) Systolic blood pressure 131 mm[Hg] 131 mm[Hg] M EDENT ([facility]) Diastolic blood pressure 74 mm[Hg] 74 mm[Hg] MEDENT ([facility]) Oxygen saturation in Arterial blood by Pulse oximetry 96 % 96 % MEDENT ([facility]) Heart rate 77 /min 77 /min MEDENT ([facility]) Body weight 160.00 [lb_av] 160.00 [lb_av] MEDEN T ([facility]) Respiratory rate 18 /min 18 /min MEDENT ( [facility]) Body weight 161 [lb_av] 161 [lb_av] eCW1 ([facility]) Body height 66 [in_i] 66 [in_i] eCW1 ([facility]) Body mass index (BMI) [Ratio] 25.98 kg/m2 25.98 kg/m2 [facility] ([facility]) Heart rate 80 /min 80 /min eCW1 ([facility]) Respiratory rate 18 /min 18 /min eCW1 (Counts include 234 beds at the [facility]) Body temperature 97.5 [degF] 97.5 [degF] eCW1 ( [facility]) Systolic blood pressure 136 mm[Hg] 136 mm[Hg] e CW1 ([facility]) Diastolic blood pressure 74 mm[Hg] 74 mm[Hg] eCW1 ([facility]) Systolic blood pressure 120 mm[Hg] 120 mm[Hg] M [facility] ([facility]) Diastolic blood pressure 72 mm[Hg] 72 mm[Hg] [facility] ([facility]) Body height 67 [in_i] 67 [in_i] [facility] ([facility]) 5'7" Body weight 163.00 [lb_av] 163.00 [lb_av] [facility] Body mass index (BMI) [Ratio] 25.5 kg/m2 25.5 k g/m2 [facility] ([facility]) [place] body weight 135 [lb_av] 135 [lb_av] [facility] Body weight 73.937 kg 73.937 kg [facility] ([facility]) Body surface area Derived from formula 1.85 m2 1.85 m2 [facility] ([facility]) Body temperature 97.2 [degF] 97.2 [degF] CHARTM KESHA ([facility]) Heart rate 71 /min 71 /min 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[facility]) Systolic blood pressure 126 mm[Hg] 126 mm[Hg] C HARTMAKER ([facility]) Diastolic blood pressure 78 mm[Hg] 78 mm[Hg] 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[facility]) Body height 67 [in_i] 67 [in_i] 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[facility]) Body weight 161 [lb_av] 161 [lb_av] 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[facility]) Body mass index (BMI) [Ratio] 25.9730228134407 kg/m2 25.3277311269213 kg/m2 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[facility]) Oxygen saturation in Arterial blood by Pulse oximetry 98 % 98 % 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[facility]) Inhaled oxygen concentration 21 % 21 % 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[facility]) Systolic blood pressure 124 mm[Hg] 124 mm[Hg] M EDENT ([facility]) Diastolic blood pressure 72 mm[Hg] 72 mm[Hg] [facility] Body weight 155.00 [lb_av] 155.00 [lb_av] MEDEN T ([facility]) Body temperature 96.5 [degF] 96.5 [degF] MEDENT ([facility]) Body weight 157.4 [lb_av] 157.4 [lb_av] eCW1 ([facility]) Body height 66 [in_i] 66 [in_i] eCW1 ([facility]) Diastolic blood pressure 76 mm[Hg] 76 mm[Hg] eCW1 ([facility]) Body mass index (BMI) [Ratio] 25.40 kg/m2 25.40 kg/m2 eCW1 ([facility]) Heart rate 104 /min 104 /min eCW1 ([facility]) Respiratory rate 18 /min 18 /min eCW1 (Counts include 234 beds at the [facility]) Body temperature 98.2 [degF] 98.2 [degF] eCW1 ( [facility]) Systolic blood pressure 132 mm[Hg] 132 mm[Hg] e CW1 ([facility]) Systolic blood pressure 125 mm[Hg] 125 mm[Hg] M EDENT ([facility]) Respiratory rate 16 /min 16 /min MEDENT ( [facility]) Body height 67 [in_i] 67 [in_i] MEDENT ([facility]) 5'7" Heart rate 90 /min 90 /min MEDENT ([facility]) Diastolic blood pressure 74 mm[Hg] 74 mm[Hg] MEDENT ([facility]) Body temperature 98.2 [degF] 98.2 [degF] MEDENT ([facility]) Body weight 153.00 [lb_av] 153.00 [lb_av] MEDEN T ([facility]) Body mass index (BMI) [Ratio] 24.0 kg/m2 24.0 k g/m2 MEDENT ([facility]) Body weight 158.6 [lb_av] 158.6 [lb_av] eCW1 ([facility]) Body height 66 [in_i] 66 [in_i] eCW1 ([facility]) Body mass index (BMI) [Ratio] 25.60 kg/m2 25.60 kg/m2 eCW1 ([facility]) Heart rate 86 /min 86 /min eCW1 ([facility]) Respiratory rate 18 /min 18 /min eCW1 (Counts include 234 beds at the [facility]) Body temperature 96.8 [degF] 96.8 [degF] eCW1 ( [facility]) Systolic blood pressure 122 mm[Hg] 122 mm[Hg] e CW1 ([facility]) Diastolic blood pressure 70 mm[Hg] 70 mm[Hg] eCW1 ([facility]) Patient Treatment Plan of Care Planned Activity Planned Date Details Description Data Source (s) atorvastatin 20 MG Oral Tablet 07/07/2021 12:00:00 AM EDT eCW1 ([facility]) atorvastatin 20 MG Oral Tablet 07/07/2021 12:00:00 AM EDT eCW1 ([facility]) atorvastatin 20 MG Oral Tablet 07/07/2021 12:00:00 AM EDT eCW1 ([facility])
--- OUTSIDE RECORDS SUMMARY | 2021-09-23 07:34 | CCD | Continuity of Care Document ---
Author Author Clarissa SAUNDERS F.N.P. Organization Unknown Address [address], [address] [place] [address] Phone [phone] Care Team Providers Care Substation Inspector Name Role Phone Esperanza Sher PA-C AUTM [phone] Problems Description No Information Available Social History Type Date Description Comments Sex Unknown ETOH Use Denies alcohol use Tobacco Use Start: Unknown Patient is a current smoker, smo kes every day 1/2 pack/day Sun Exposure moderate amount of sun exposure Sun Exposure Has never experienced blistering from sunburns Sun Exposure Does not use sunscreen Sun Exposure Has never used tanning bed Allergies, Adverse Reactions, Alerts Description No Known Drug Allergies Medications Active Medications SIG Qnty Indications Ordering Provide r Date Levothyroxine Sodium 25mcg Tablets Unknown Vitamin D2 400Unit Tablets Unknown Alendronate Sodium 5mg Tablets Unknown Atorvastatin Calcium 10mg Tablets Unknown Metformin HCL Unknown Calcium Citrate + D Unknown Immunizations Description No Information Available Vital Signs Date Vital Result Comment 08/06/2021 9:47am BP Systolic 131 mmHg BP Diastolic 74 mmHg O2 % BldC Oximetry 96 % Heart Rate 77 /min Weight 160.00 lb Respiratory Rate 18 /min 01/29/2021 9:00am BP Systolic 124 mmHg BP Diastolic 72 mmHg Weight 155.00 lb Body Temperature 96.5 F Results Test Acquired Date Facility Test Result H/L Range Note BXDX Pathology 08/06/2021 [facility] Icd9 Code ICD9 Code: C44.2 <SEE NOTE> 1, 2 PDFReport SEE IMAGE [address] Stanford letter a waiting signature LW 08/11/21 photo emailed, letter sent, awaiting appt LW 08/12/21 2 ICD9 Code: C44.229 Protocol: shave Clinical Text: SCC IN SITU VS. 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 Gross Text: The specimen grossly was irregular in shape and measured 9 x 5 mm. on the surface and 1 mm. deep. It was divided into 2 sections on the long axis. All of the tissue was submitted for processing. Microscopic Description: Atypical keratinocytes extend from the epidermis into the dermis. CPT: 28900*1 Procedures Date Code Description Status 08/06/2021 89954 Office/Outpatient Established Mo d MDM 30-39 Min Completed 08/06/2021 33015 Shave Biopsy Of Skin, Single Les ion Completed Medical Devices Description No Information Available Encounters Type Date Location Provider Dx Diagnosis Office Visit 08/06/2021 10:00a Main Office Concetta Saunders, F.N.P. D48.5 Neoplasm of uncertain behavior of skin D22.5 Melanocytic nevi of trunk D22.71 Melanocytic nevi of right lo wer limb, including hip D22.72 Melanocytic nevi of left low er limb, including hip L81.4 Other melanin hyperpigmentat ion L82.1 Other seborrheic keratosis Z87.2 Personal history of diseases of the skin, subcu Z08 Encntr for follow-up exam af ter trtmt for malignant neoplasm Assessments Date Code Description Provider 08/06/2021 D48.5 Neoplasm of uncertain behavior o f skin Concetta Saunders, F.N.P. 08/06/2021 D22.5 Melanocytic nevi of trunk Laina Wasserman'sapphire, F.N.P. 08/06/2021 D22.71 Melanocytic nevi of right lower limb, including hip Concetta Wasserman'sapphire, F.N.P. 08/06/2021 D22.72 Melanocytic nevi of left lower l imb, including hip Concetta Wasserman'sapphire, F.N.P. 08/06/2021 L81.4 Other melanin hyperpigmentation Concetta Saunders, F.N.P. 08/06/2021 L82.1 Other seborrheic keratosis Allen Braun. 08/06/2021 Z87.2 Personal history of diseases of the skin and subcutaneous tissue Allen Gray. 08/06/2021 Z08 Encounter for follow -up examination after completed treatment for malignant neoplasm Deborah Gray Plan of Treatment Future Appointment(s):* 2022 11:15 am - Allen Gray. at Main Office 08/06/2021 - Deborah Gray* D48.5 Neoplasm of uncertain behavior of skin* Comments:* Shave biopsy today, L preauricular - SCC in situ vs SCCDiscussed risks of biopsy to include scarring, infection, need for further treatment. Alternative to the biopsy is watchful waitingInformed consent for biopsy signed and photographs takenVerified , name and sites. The area was prepped with alcohol and anesthestized with 1% Lidocaine with Epinephrine. The wound was dressed with band-aid and Vaseline. Patient tolerated well with no complications. Specimen sent to pathology Wound care instructions given Will call with pathology when availableInstructed to call with any problems * D22.5 Melanocytic nevi of trunk* Comments:* Nevi on trunk appear healthy. Monitor for changes. Sun protection and sunscreen use discussed. Discussed if any moles change in shape or color, itch, bleed or burn to contact the office for evaluation sooner than their interval appointment. * D22.71 Melanocytic nevi of right lower limb, including hip* Comments:* Nevus located on R leg appear healthy. Monitor for changes. Should any moles change in shape or color, itch, bleed or burn patient instructed to call offic e for evaluation sooner than their interval appointment. * D22.72 Melanocytic nevi of left lower limb, including hip* Comments:* Nevi L leg appear healthy. Monitor for changes. Should any moles change in shape or color, itch, bleed or burn, patient instructed to contact office for ev aluation sooner than their interval appointment. * L81.4 Other melanin hyperpigmentation* Comments:* Solar lentigines - ReassuranceDiscussed that solar lentignes appear from the sun that was received years agoSunscreen use and sun protection discussed. * L82.1 Other seborrheic keratosis* Comments:* Reassurance Discussed seborrheic keratoses are benign warty growths on the skin that appear with age and that they are not contagious The precise cause of Krzysztof K's is unknown although can run in families so genes may play a role Discussed if ever becomes irritated to call for a removal appointment * Z87.2 Personal history of diseases of the skin and subcutaneous tissue* Comments:* Continue to monitor for reoccurrence SCC in situ's. * Z08 Encounter for follow-up examination after completed treatment for malignant neoplasm* Comments:* Reviewed sign and symptoms of skin cancer, including ABCDE's of melanoma.Discussed the importance of using a sunscreen with Zinc Oxide or Titanium Dioxide and to reapply every 2-3 hours.Discussed importance of avoidance of tanning beds and excessive UV exposure.Discussed the importance of monthly self skin examinations.Recommended a skin cancer screening on a yearly basis.Discussed increased risk of skin cancer due to sunburn. See above * Follow up:* 6 months/PRN - [facility] Functional Status Description No Information Available Mental Status Description No Information Available Referrals Description No Information Available
--- OUTSIDE RECORDS SUMMARY | 2021-09-23 07:34 | CCD ---
Author Author [facility] Organization [facility] Address Unknown Phone Unavailable Care Team Providers Care Sales Support Manager Name Role Phone Esperanza Sher Unavailable PROBLEMS Type Condition ICD9-CM Code [id number] Code Onset Dates Condition S tatus W/U Status Risk SNOMED Code Notes Problem Postmenopausal status (age-related) (natural) V49.81 Active confirmed 17031687 Problem Family history of malignant neoplasm of breast Z80 .3 Active confirmed 114665035 Problem Age-related osteoporosis without current pathological fracture M81.0 Active confirmed 73284142 Tolerating fatuma dronate 70 mg once a week with no unwanted side effects Problem Type 2 diabetes mellitus wit h hyperglycemia, without long-term current use of insulin E11.65 Active confirmed [id number] Doing well on metformin 500 mg once a day, with excellent therapeutic lifestyle changes, no medication changes have been made Problem Atypical mole D22.9 Active confirmed 469757 001 Problem Coital headache G44.82 Active confirmed 3958 39735 Problem History of rectal cancer Z85.048 Active confirmed 695325380 Problem Acquired hypothyroidism E03.9 Active confirmed 303669081 Doing well on levothyroxine 25 mcg daily, no medication changes at been made Problem Vitamin D deficiency E55.9 Active confirmed 79186785 Back to goal now that she is taking the vitamin D just once a month Problem Mixed hyperlipidemia E78.2 Active confirmed 001431496 Doing well on atorvastatin 10 mg daily, no medication changes have been made Problem Hypocalcemia E83.51 Active confirmed 2733968 I reminded Clarissa that she has to take calcium, and she can take either [id number] or prescription, which I have sent ALLERGIES No Known Allergies ENCOUNTERS from 1955 to 2021-08-13 Encounter Location Date Provider Diagnosis [facility] [place] [address] [place] [phone] Jul, Esperanza Sher Hypocalcemia E83.51 IMMUNIZATIONS Vaccine Route Administration Date Status Influenza 6mo & up Fluzone Unknown Oct 28, 2018 Refus ed SOCIAL HISTORY Tobacco Use: Social History Observation Description Date Details (start date - stop date) Current Smoker Sex Assigned At : Social History Observation Description Sex Assigned At Unknown Education: Question Answer Notes Level of Education: Finished High School Audit Question Answer Notes Total Score: 0 Interpretation: Alcohol Education Sexual Hx: Question Answer Notes Had sex in the last 12 months (vaginal, oral, or anal)? Yes Have you ever had an STD? No with Men only Drug and Alcohol Question Answer Notes Total Score: 0 Interpretation: No problems reported Alcohol Screening: Question Answer Notes Did you have a drink containing alcohol in the past year? No Points 0 Interpretation Negative BMI Care Goal Follow-Up Question Answer Notes Above Normal BMI Follow-Up Dietary management educatio n, guidance, and counseling Tobacco Use: Question Answer Notes Are you a: current smoker Additional Findings: Tobacco User Heavy cigarette smoker (20 -39 cigs/day) Smoking Cessation Information Given 12/25/2020 Patient counseled on the dangers of tobacco use and urged to quit: 12/25/2020 How many cigarettes a day do you smoke? 11-20 Are you interested in quitting? Not ready to quit Counseled the patient on smoking effects, education provided 10/13/2019 REASON FOR REFERRAL No Information VITAL SIGNS No information MEDICATIONS Medication SIG (Take, Route, Frequency, Duration) Notes Start Da te End Date Status Atorvastatin Calcium 20 MG 1 tablet Orally Once a day for 90 day s Jun, Active Calcium Citrate 500 MG 1 capsule with food Orally Twice a day fo r 30 Days Sep, Active Alendronate Sodium 70 MG 1 tablet Orally Once a week for 28 day(s) Active Aleve 220 MG 1 tablet with food or milk as needed Orally every 12 hrs Active Drisdol 93192 UNIT 1 capsule Orally Once a month for 90 days Active metFORMIN HCl 500 MG 1 tablet with a meal Orally Once a day for 30 da ys Active Levothyroxine Sodium 50 MCG 1 tablet in the morning on an empty stomach Orally Once a day for 30 Days Active PROCEDURES No Information RESULTS No Results REASON FOR VISIT metformin, calcium, alendronate MEDICAL (GENERAL) HISTORY Type Description Date Medical History osteoporosis Medical History smoker Medical History family history of breast cancer Medical History rectal cancer s/p low anterior resection 01/29/17 Surgical History BTL Surgical History robotic-assisted laparoscopi c low anterior resection of the colon 01/29/17 Hospitalization History partial colectomy 01/29/17 Goals Section No Information Health Concerns No Information MEDICAL EQUIPMENT No Information MENTAL STATUS No Information FUNCTIONAL STATUS No Information ASSESSMENTS Encounter Date Diagnosis Assessment Notes Treatment Notes Treatm ent Clinical Notes Jul, Hypocalcemia (ICD-10 - E83.51) PLAN OF TREATMENT Medication Medication Name Sig Start Date Stop Date metFORMIN HCl 500 MG 1 tablet with a meal Orally Once a day for 30 days Atorvastatin Calcium 20 MG 1 tablet Orally Once a day for 90 day s Jun, Calcium Citrate 500 MG 1 capsule with food Orally Twice a da y for 30 Days Sep, Alendronate Sodium 70 MG 1 tablet Orally Once a week for 28 day( s) Levothyroxine Sodium 50 MCG 1 tablet in the morning on an empty stomach Orally Once a day for 30 Days Next Appt Details Provider Name:Esperanza Sher, 2021-12- 5 08:30:00 AM, [address], , [place], [phone], Insurance Providers Payer Name Payer Address Payer Phone Insured Name Patient Relati onship to Insured Coverage Start Date Coverage End Date [facility] [id number] [facility] [phone] CLARISSA GONZALEZ
--- OUTSIDE RECORDS SUMMARY | 2021-09-23 07:34 | CCD ---
Author Author [facility] Organization [facility] Address Unknown Phone Unavailable Care Team Providers Care Pharmacist Critical Care Name Role Phone Esperanza Sher Unavailable PROBLEMS Type Condition ICD9-CM Code [id number] Code Onset Dates Condition S tatus W/U Status Risk SNOMED Code Notes Problem Postmenopausal status (age-related) (natural) V49.81 Active confirmed 11847650 Problem Family history of malignant neoplasm of breast Z80 .3 Active confirmed 454904534 Problem Age-related osteoporosis without current pathological fracture M81.0 Active confirmed 61005297 Tolerating fatuma dronate 70 mg once a week with no unwanted side effects Problem Type 2 diabetes mellitus wit h hyperglycemia, without long-term current use of insulin E11.65 Active confirmed [id number] Doing well on metformin 500 mg once a day, with excellent therapeutic lifestyle changes, no medication changes have been made Problem Atypical mole D22.9 Active confirmed 824957 001 Problem Coital headache G44.82 Active confirmed 3959 06266 Problem History of rectal cancer Z85.048 Active confirmed 530817835 Problem Acquired hypothyroidism E03.9 Active confirmed 285543414 Doing well on levothyroxine 25 mcg daily, no medication changes at been made Problem Vitamin D deficiency E55.9 Active confirmed 43698542 Back to goal now that she is taking the vitamin D just once a month Problem Mixed hyperlipidemia E78.2 Active confirmed 068366714 Doing well on atorvastatin 10 mg daily, no medication changes have been made Problem Hypocalcemia E83.51 Active confirmed 4291711 I reminded Clarissa that she has to take calcium, and she can take either bepr-cri-ykdpahp or prescription, which I have sent ALLERGIES No Known Allergies ENCOUNTERS from 1955 to 2021-08-01 Encounter Location Date Provider Diagnosis [facility] [phone] [place] [address] Jul, Esperanza Sher IMMUNIZATIONS Vaccine Route Administration Date Status Influenza [...] day for 90 day s Jun, Active metFORMIN HCl 500 MG 1 tablet with a meal Orally Once a day for 90 Active Calcium Citrate 500 MG 1 capsule with food Orally Twice a day fo r 30 Days Sep, Active Alendronate Sodium 70 MG 1 tablet Orally Once a week for 28 Active Drisdol 25070 UNIT 1 capsule Orally Once a month for 90 days Active Aleve 220 MG 1 tablet with food or milk as needed Orally every 12 hrs Active Levothyroxine Sodium 50 MCG 1 tablet in the morning on an empty stomach Orally Once a day for 30 Days Active PROCEDURES No Information RESULTS No Results REASON FOR VISIT refill - out of meds MEDICAL (GENERAL) HISTORY Type Description Date Medical [...] No Information FUNCTIONAL STATUS No Information ASSESSMENTS No Information PLAN OF TREATMENT Medication Medication Name Sig Start Date Stop Date Levothyroxine Sodium 50 MCG 1 tablet in the morning on an empty stomach Orally Once a day for 30 Days Atorvastatin Calcium 20 MG 1 tablet Orally Once a day for 90 day s Jun, Next Appt Details Provider Name:Esperanza Sher, 2021-12-30 5 08:30:00 AM, [address], , [place], [address], Insurance Providers Payer Name Payer Address Payer Phone Insured Name Patient Relati onship to Insured Coverage Start Date Coverage End Date [facility] [id number] [facility] [phone] CLARISSA GONZALEZ
--- OUTSIDE RECORDS SUMMARY | 2021-09-23 07:34 | CCD | Continuity of Care Document ---
Author Author [facility] Organization Unknown Address [address], [address] [place] [address] Phone [phone] Care Team Providers Care Lead Carpenter Name Role Phone Esperanza Sher P.A.-C AUTM [phone] Problems Description No Active Problems Social History Type Date Description Comments Sex Unknown ETOH Use Denies alcohol use Tobacco Use Start: Unknown Smokes 1/2 Pack A Day Tobacco Use Start: Unknown Report Cessation Counseling Was Provided Allergies, Adverse Reactions, Alerts Description No Known Drug Allergies Medications Active Medications SIG Qnty Indications Ordering Provide r Date Suprep Bowel Prep Kit 17.5-3.13-1.6GM/177ML Solution take per doctor's bowel prep instructions. 354ml Z12.1 1 Anson Calvin MD 06/12/2021 Milk Of Magnesia 1200mg/15ML Suspe nsion take 45 milliliters by mouth as directed on colonoscopy prep sheet. Z12.11 Anson Calvin MD 06/12/2021 Metformin HCL 500mg Tablets D aily Unknown Levothyroxine Sodium 50mcg Capsule s 1 by mouth every day Unknown Atorvastatin Calcium 10mg Tablets 1 by mouth every day Unknown Vitamin D (Ergocalciferol) 1.25mg (99733 Ut) Capsules 1 cap by mouth every month Unknown 0 Alendronate Sodium 70mg Tablets 1 tab by mouth every week Unknown Calcium Citrate + Tablets 250 mg 2 bid Unknown Aleve 220mg Capsules as neede d Unknown Immunizations Description No Information Available Vital Signs Date Vital Result Comment 06/12/2021 3:05pm BP Systolic 120 mmHg BP Diastolic 72 mmHg Height 67 inches 5'7" Weight 163.00 lb BMI (Body Mass Index) 25.5 kg/m2 [place] Body Weight 135 lb Weight 73.937 kg BSA (Body Surface Area) 1.85 m2 11/20/2016 11:00am BP Systolic 112 mmHg BP Diastolic 70 mmHg Height 67 inches 5'7" Weight 172.00 lb BMI (Body Mass Index) 26.9 kg/m2 [place] Body Weight 135 lb Weight 78.019 kg BSA (Body Surface Area) 1.90 m2 Results Description No Information Available Procedures Description No Information Available Medical Devices Description No Information Available Encounters Description No Information Available Assessments Date Code Description Provider 06/12/2021 Z12.11 Encounter for screening for christophe gnant neoplasm of colon KENTON Nava 06/12/2021 Z85.038 Personal history of other malignant neoplasm of large intestine KENTON Nava 06/12/2021 Z80.0 Family history of malignant neop lasm of digestive organs KENTON Nava 06/12/2021 Z86.010 Personal history of colonic poly ps KENTON Nava Plan of Treatment Future Appointment(s):* 09/23/2021 2:00 am - Anson Calvin MD at [facility] 06/12/2021 - KENTON Nava* Z12.11 Encounter for screening for malignant neoplasm of colon * Z85.038 Personal history of other malignant neoplasm of large intestine * Z80.0 Family history of malignant neoplasm of digestive organs * Z86.010 Personal history of colonic polyps * * New Medication:* Suprep Bowel Prep Kit 17.5-3.13-1.6 GM/177ML * Milk Of Magnesia 1200 mg/15ML * New Orders:* Colonoscopy, Ordered: 06/12/21 * Comments:* Will arrange for colonoscopy. Reviewed risks and benefits of the procedure, as well as other options, with the patient. Bowel prep procedure was discussed with patient, as well as risks and side effects associated with the bowel prep. Patient verbalized understanding of all of the above and is in agreement to proceed. Patient will seek medical attention for any acute changes. Will monitor. * Follow up:* As scheduled, sooner if needed. Functional Status Description No Information Available Mental Status Description No Information Available Referrals Description No Information Available
--- OUTSIDE RECORDS SUMMARY | 2021-09-23 07:34 | CCD ---
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 Active confirmed 151042695 Problem Family history of malignant neoplasm of breast Z80 .3 Active confirmed 045423208 Problem Age-related osteoporosis without current pathological fracture M81.0 Active confirmed 38776754 Tolerating fatuma dronate 70 mg once a week with no unwanted side effects Problem Mixed hyperlipidemia E78.2 Active confirmed 253692306 Doing well on atorvastatin 10 mg daily, no medication changes have been made Problem Coital headache G44.82 Active confirmed 3954 23777 Problem Postmenopausal status (age-related) (natural) V49.81 Active confirmed 24232475 Problem 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 Active confirmed 979376587 Problem Atypical mole D22.9 Active confirmed 692727 001 Problem Acquired hypothyroidism E03.9 Active confirmed 218139821 Doing well on levothyroxine 25 mcg daily, no medication changes at been made Problem Vitamin D deficiency E55.9 Active confirmed 79131820 Back to goal now that she is taking the vitamin D just once a month Problem Hypocalcemia E83.51 Active confirmed 1209060 I reminded Clarissa that she has to take calcium, and she can take either brxa-pss-rdgpxmz or prescription, which I have sent Problem Type 2 diabetes mellitus wit h hyperglycemia, without long-term current use of insulin E11.65 Active confirmed [id number] Doing well on metformin 500 mg once a day, with excellent therapeutic lifestyle changes, no medication changes have been made ALLERGIES No Known Allergies ENCOUNTERS from 1955 to 2021-09-16 Encounter Location Date Provider Diagnosis [facility] Dermatology [address] [facility] [phone] [place] [address] Aug, Tito Stanford 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 IMMUNIZATIONS Vaccine Route Administration Date Status Influenza [...] REASON FOR REFERRAL No Information VITAL SIGNS Weight 168.6 lbs Aug, Weight-kg 76.48 kg Aug, Height 66 in Aug, BMI 27.21 kg/m2 Aug, Blood pressure systolic 135 mm Hg Aug, Blood pressure diastolic 75 mm Hg Aug, MEDICATIONS Medication SIG (Take, Route, Frequency, Duration) Notes Start Da te End Date Status metFORMIN HCl 500 MG 1 tablet with a meal Orally Once a day for 30 da ys Active Aleve 220 MG 1 tablet with food or milk as needed Orally every 12 hrs Active Atorvastatin Calcium 20 MG 1 tablet Orally Once a day for 90 day s Jun, Active Alendronate Sodium 70 MG 1 tablet Orally Once a week for 28 day(s) Active Calcium Citrate 500 MG 1 capsule with food Orally Twice a day fo r 30 Days Sep, Active Levothyroxine Sodium 50 MCG TAKE ONE TABLET BY MOUTH E VERY MORNING ON AN EMPTY STOMACH for 30 Active Drisdol 86548 UNIT 1 capsule Orally Once a month for 90 days Active PROCEDURES No Information RESULTS No Results REASON FOR VISIT Surgical consult MEDICAL (GENERAL) HISTORY Type Description Date Medical [...] Notes Treatment Notes Treatm ent Clinical Notes Aug, Squamous cell cancer of skin of left cheek (ICD- 10 - C44.329) Very pleasant patient referred for surgical consultation, as above. The pathology report from the referring provider was reviewed and interpreted to ensure this case is appropriate for surgery by dermatologic surgeon, Tito Stanford MD. This interpretation was discussed with the patient. Referral photograph of the biopsy site was reviewed and verified with patient. Extensive discussion was performed with the patient regarding treatment options to include no treatment, chemotherapy, radiation therapy, and surgery, to include, whether Mohs Micrographic Surgery would be an appropriate treatment modality in this case. Discussed with patient surgical reconstruction options to include secondary intent, primary closure, skin flap, and skin graft. 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 Pt currently scheduled for slow mohs excision and repair of lesion. Patient's affect is not congruous with diagnosis or planned repair. Explained several times extent and likely needed reconstruction. PLAN OF TREATMENT Treatment Notes Assessment Notes Clinical Notes Squamous cell cancer of skin of left cheek Very pleasant patient referred for surgical consultation, as above. The pathology report from the referring provider was reviewed and interpreted to ensure this case is appropriate for surgery by dermatologic surgeon, Tito Stanford MD. This interpretation was discussed with the patient. Referral photograph of the biopsy site was reviewed and verified with patient. Extensive discussion was performed with the patient regarding treatment options to include no treatment, chemotherapy, radiation therapy, and surgery, to include, whether Mohs Micrographic Surgery would be an appropriate treatment modality in this case. 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 Pt currently scheduled for slow mohs excision and repair of lesion. Patient's affect is not congruous with diagnosis or planned repair. Explained several times extent and likely needed reconstruction. Next Appt Details Provider Name:Tito Stanford, 11-04 07:00:00 AM, [address] [place] [address], , [place], [address], Provider Name:Tito Stanford, 11-05 08:00:00 AM, [address] [place] [address], , [place], [address], Provider Name:Esperanza Sher, 2021-12-30 5 08:30:00 AM, [address], , [place], [address], Insurance Providers Payer Name Payer Address Payer Phone Insured Name Patient Relati onship to Insured Coverage Start Date Coverage End Date [facility] [place] [address] [facility] [phone] CLARISSA GONZALEZ
--- OUTSIDE RECORDS SUMMARY | 2021-09-23 07:34 | CCD ---
Author Author [facility] Organization [facility] Address Unknown Phone Unavailable Care Team Providers Care Rn Home Care Name Role Phone Esperanza Sher Unavailable PROBLEMS Type Condition ICD9-CM Code [id number] Code Onset Dates Condition S tatus W/U Status Risk SNOMED Code Notes Problem Postmenopausal status (age-related) (natural) V49.81 Active confirmed 83032674 Problem Family history of malignant neoplasm of breast Z80 .3 Active confirmed 088473124 Problem Age-related osteoporosis without current pathological fracture M81.0 Active confirmed 74388775 Tolerating fatuma dronate 70 mg once a week with no unwanted side effects Problem Type 2 diabetes mellitus wit h hyperglycemia, without long-term current use of insulin E11.65 Active confirmed [id number] Doing well on metformin 500 mg once a day, with excellent therapeutic lifestyle changes, no medication changes have been made Problem Atypical mole D22.9 Active confirmed 118278 001 Problem Coital headache G44.82 Active confirmed 3953 34906 Problem History of rectal cancer Z85.048 Active confirmed 113177509 Problem Acquired hypothyroidism E03.9 Active confirmed 499766040 Doing well on levothyroxine 25 mcg daily, no medication changes at been made Problem Vitamin D deficiency E55.9 Active confirmed 62564772 Back to goal now that she is taking the vitamin D just once a month Problem Mixed hyperlipidemia E78.2 Active confirmed 761611788 Doing well on atorvastatin 10 mg daily, no medication changes have been made Problem Hypocalcemia E83.51 Active confirmed 9497331 I reminded Clarissa that she has to take calcium, and she can take either ozqv-eex-xuhrioy or prescription, which I have sent ALLERGIES No Known Allergies ENCOUNTERS from 1955 to 2021-07-27 Encounter Location Date Provider Diagnosis [facility] [place] [address] [place] [phone] Jun, Esperanza Sher Mixed hyperlipidemia E78.2 ; Acquired hy pothyroidism E03.9 ; Type 2 diabetes mellitus with hyperglycemia, without long-term current use of insulin E11.65 ; Vitamin D deficiency E55.9 and Coital headache G44.82 IMMUNIZATIONS Vaccine Route Administration Date Status Influenza [...] FOR REFERRAL No Information VITAL SIGNS Weight 161 lbs Jun, Height 66 in Jun, BMI 25.98 kg/m2 Jun, Heart Rate 80 /min Jun, Respiratory Rate 18 /min Jun, Temperature 97.5 degrees Fahrenheit Jun, Oximetry 97 Jun, Blood pressure systolic 136 mm Hg Jun, Blood pressure diastolic 74 mm Hg Jun, MEDICATIONS Medication SIG (Take, Route, Frequency, Duration) [...] Once a week for 28 Active Drisdol 85159 UNIT 1 capsule Orally Once a month for 90 days Active Aleve 220 MG 1 tablet with food or milk as needed Orally every 12 hrs Active Levothyroxine Sodium 50 MCG 1 tablet in the morning on an empty stomach Orally Once a day for 30 Active PROCEDURES No Information RESULTS No Results REASON FOR VISIT follow up MEDICAL (GENERAL) HISTORY Type Description Date Medical [...] Notes Treatment Notes Treatm ent Clinical Notes Jun, Mixed hyperlipidemia (ICD-10 - E78.2) Jun, Acquired hypothyroidism (ICD-10 - E03.9) Jun, Type 2 diabetes mellitus wit h hyperglycemia, without long-term current use of insulin (ICD-10 - E11.65) Jun, Vitamin D deficiency (ICD-10 - E55.9) Jun, Coital headache (ICD-10 - G44.82) PLAN OF TREATMENT Medication Medication Name Sig Start Date Stop Date Atorvastatin Calcium 20 MG 1 tablet Orally Once a day for 90 day s Jun, Future Test Test Name Order Date Comprehensive Metabolic Profile (CMP) 20211230 HEMOGLOBIN A1c 20211230 LIPID PANEL (CARDIAC RISK) 20211230 TSH 20211230 VITAMIN D 25-HYDROXY 20211230 Next Appt Details 6 Months, 30 min Reason:htn, lipipds, DM Provider Name:Esperanza Sher, 2021-12-30 5 08:30:00 AM, [address], , [place], [address], Follow Up:6 Months, 30 minhtn, lipipds, DM Insurance Providers Payer Name Payer Address Payer Phone Insured Name Patient Relati onship to Insured Coverage Start Date Coverage End Date [facility] [id number] [facility] [address] [phone] CLARISSA GONZALEZ self
--- OUTSIDE RECORDS SUMMARY | 2021-09-23 07:34 | CCD | Continuity of Care Document ---
Author Author Clarissa [facility] Organization Unknown Address [address], [address] [place] [address] Phone [phone] Care Team Providers Care Business Office Technician Name Role Phone Esperanza Sher PA-C AUTM [phone] Problems Description No Information Available Social History Type Date Description Comments Sex Unknown ETOH Use Denies alcohol use Tobacco Use Start: Unknown Patient is a current smoker, smo kes every day 1/2 pack/day Sun Exposure moderate amount of sun exposure Sun Exposure Has never experienced blistering from sunburns Sun Exposure Does not use sunscreen Sun Exposure Has never used tanning bed Allergies and adverse reactions Description No Known Drug Allergies Medications Active [...] SCHEDULED FOR 11/04/21 AND 11/05/21 FOR SURGERIES 2 ICD9 Code: C44.229 Protocol: shave Clinical [...] from the epidermis into the dermis. CPT: 36775*1 Procedures Date Code Description Status 08/06/2021 34154 Office/Outpatient Established Mo d MDM 30-39 Min Completed 08/06/2021 63387 Shave Biopsy Of Skin, Single Les ion [...] 08/06/2021 D22.5 Melanocytic nevi of trunk Laina Saunders, F.N.P. 08/06/2021 D22.71 Melanocytic nevi of right lower limb, including hip Concetta Saunders, F.N.P. 08/06/2021 D22.72 Melanocytic nevi of left lower l imb, including hip Deborah Gray 08/06/2021 L81.4 Other melanin hyperpigmentation Deborah Gray 08/06/2021 L82.1 Other seborrheic keratosis Deborah Braun 08/06/2021 Z87.2 Personal history of diseases of the skin and subcutaneous tissue Deborah Gray 08/06/2021 Z08 Encounter for follow -up examination [...]
--- NOTE | 2021-09-23 09:44 | ROOR ---
Patient Name: Clarissa Hurst Procedure Date: 09/23/2021 9:11 AM Date of : 1955 Age: 66 Room: [facility] Gender: Female Note Status: Finalized Procedure: Colonoscopy Indications: High risk colon cancer surveillance: Personal history of colonic polyps, High risk colon cancer surveillance: Personal history of colon cancer Providers: Anson Calvin MD Referring MD: AIXA Gaytan PA-C Requesting Provider: Medicines: Monitored Anesthesia Care Complications: No immediate complications. Procedure: Pre-Anesthesia Assessment: - The heart rate, respiratory rate, oxygen saturations, blood pressure, adequacy of pulmonary ventilation, and response to care were monitored throughout the procedure. The Colonoscope was introduced through the anus and advanced to the terminal ileum, with identification of the appendiceal orifice and IC valve. The colonoscopy was performed without difficulty. The patient tolerated the procedure well. The quality of the bowel preparation was good. Findings: The perianal and digital rectal examinations were normal. A tattoo was seen in the mid ascending colon. A 6 mm polyp was found in the mid ascending colon next to the tattoo (Only SEEN IN RETROFLEXED VIEW). The polyp was flat. The polyp was removed with a piecemeal technique using a cold snare. Resection and retrieval were complete. A 4 mm polyp was found in the splenic flexure. The polyp was sessile. The polyp was removed with a cold snare. Resection and retrieval were complete. There was evidence of a prior end-to-end colo-rectal anastomosis in the distal rectum. This was characterized by healthy appearing mucosa. The exam was otherwise normal throughout the examined colon. Impression: - A tattoo was seen in the mid ascending colon. One 6 mm residual polypoid tissue was seen next to the tatoo. This was removed piecemeal using a cold snare. Resected and retrieved. - One 4 mm polyp at the splenic flexure, removed with a cold snare. Resected and retrieved. - End-to-end colo-(distal)rectal anastomosis, characterized by healthy appearing mucosa. Recommendation: - Repeat colonoscopy in 3 years for surveillance. Procedure Code(s): --- Professional --- 10991, Colonoscopy, flexible; with removal of tumor(s), polyp(s), or other lesion(s) by snare technique Diagnosis Code(s): --- Professional --- Z98.0, Intestinal bypass and anastomosis status K63.5, Polyp of colon Z85.038, Personal history of other malignant neoplasm of large intestine Z86.010, Personal history of colonic polyps CPT copyright 2019 [employer]. All rights reserved. The codes documented in this report are preliminary and upon field hockey and lacrosse coach review may be revised to meet current compliance requirements. Anson Calvin MD Anson Calvin MD 09/23/2021 9:43:43 AM Electronically signed by Anson Calvin MD Number of Addenda: 0 Note Initiated On: 09/23/2021 9:11 AM Estimated Blood Loss: Estimated blood loss: none.
[2021-09-23 10:00] VITALS: BP 127/57
== END 2021-09-23 10:08 | disposition home or self-care (01) ==
LOC: M OPP 07:26
PROVIDERS: ATTEND Internal Medicine Gastroenterology
DX: Z12.11 Encounter for screening for malignant neoplasm of colon (principal); Z85.038 Personal history of other malignant neoplasm of large intestine; Z86.010 Personal history of colon polyps; Z80.0 Family history of malignant neoplasm of digestive organs; Z98.0 Intestinal bypass and anastomosis status; K63.5 Polyp of colon; Z79.84 Long term (current) use of oral hypoglycemic drugs; Z79.899 Other long term (current) drug therapy

== ENCOUNTER → 2021-11-04 | Outpatient (REF) | payer OTHER ==
[~2021-11-04] MED LIST changes: -LIDOCAINE 2% 100MG/5ML SDV (FOR ANES.) As Ordered ONE; -NS 1,000 ML IV ONE; -propofoL 200 MG/20 ML VIAL As Ordered ONE
== END ==
LOC: M LAB REF 10:44
PROVIDERS: ATTEND Dermatology
DX: D48.5 Neoplasm of uncertain behavior of skin (principal)

== ENCOUNTER → 2022-01-06 | Outpatient (REF) | payer OTHER ==
[2022-01-06 13:27] LABS: ALBUMIN 3.9 GM/DL (3.2-5.2); ALT/SGPT 26 U/L (12-78); BILIRUBIN,TOTAL 0.5 MG/DL (0.2-1.0); BLOOD UREA NITROGEN 15 MG/DL (7-18); CALCIUM LEVEL 9.4 MG/DL (8.8-10.2); CARBON DIOXIDE LEVEL 27 MEQ/L (21-32); CHLORIDE LEVEL 109 MEQ/L (98-107); CHOLESTEROL LEVEL 191 MG/DL (<200); CHOLESTEROL RISK RATIO 3.603 (<5); CREATININE FOR GFR 0.84 MG/DL (0.55-1.30); GLOMERULAR FILTRATION RATE > 60.0 (>45); GLUCOSE, FASTING 114 MG/DL (70-100); HDL CHOLESTEROL 53 MG/DL (>40); LDL CHOLESTEROL 117 MG/DL (<100); NON-HDL-C 138 MG/DL; POTASSIUM SERUM 4.8 MEQ/L (3.5-5.1); SODIUM LEVEL 142 MEQ/L (136-145); TOTAL PROTEIN 6.7 GM/DL (6.4-8.2); TRIGLYCERIDES LEVEL 107 MG/DL (<150)
[2022-01-06 13:28] LABS: TOTAL 25(OH) VITAMIN D 49.1 NG/ML (30.0-100.0)
[2022-01-06 13:45] LABS: HEMOGLOBIN A1c 6.9 %
== END ==
LOC: M SFHCADAM 08:22
PROVIDERS: ATTEND Physician Assistant
DX: E78.2 Mixed hyperlipidemia (principal); E03.9 Hypothyroidism, unspecified; E11.65 Type 2 diabetes mellitus with hyperglycemia; E55.9 Vitamin D deficiency, unspecified

== ENCOUNTER → 2022-01-20 | Outpatient (CLI) | payer OTHER | LOC: M WHC 13:41 | PROVIDERS: ATTEND Physician Assistant | DX: Z12.31 Encounter for screening mammogram for malignant neoplasm of breast (principal) ==

== ENCOUNTER 2022-04-06 15:05 | Inpatient (IN) | payer OTHER ==
[~2022-04-06] VITALS: Ht 170.2 cm; Wt 78.2 kg
[2022-04-06 17:43] LABS: BASO # 0.1 10^3/uL (0.0-0.2); BASO % 0.8 % (0.0-1.0); EOS # 0.1 10^3/uL (0.0-0.5); EOS % 0.7 % (0.0-3.0); HEMATOCRIT 44.3 % (36.0-47.0); HEMOGLOBIN 14.5 g/dl (12.0-15.5); LYMPH % 26.2 % (24.0-44.0); MEAN CORPUSCULAR HEMOGLOBIN 32.7 pg (27.0-33.0); MEAN CORPUSCULAR HGB CONC 32.7 g/dl (32.0-36.5); MEAN CORPUSCULAR VOLUME 99.8 fl (80.0-96.0); MONO # 0.9 10^3/uL (0.0-0.8); MONO % 7.7 % (2.0-8.0); NEUTROPHILS # 7.4 10^3/uL (1.5-8.5); NEUTROPHILS % 64.3 % (36.0-66.0); PLATELET COUNT, AUTOMATED 254 10^3/uL (150-450); RED BLOOD COUNT 4.44 10^6/uL (4.00-5.40); WHITE BLOOD COUNT 11.5 10^3/uL (4.0-10.0)
[2022-04-06 17:52] LABS: PARTIAL THROMBOPLASTIN TIME 26.3 SECONDS (25.9-37.0)
[2022-04-06 17:56] LABS: CK-MB VALUE MASS 1.6 NG/ML (<3.6); CPK CREATINE PHOSPHOKINASE 98 U/L (26-192); MB/CK RELATIVE INDEX 1.63 (< OR =4)
[2022-04-06 18:02] LABS: ALBUMIN 4.2 GM/DL (3.2-5.2); ALT/SGPT 29 U/L (12-78); BILIRUBIN,DIRECT 0.2 MG/DL (0.0-0.2); BILIRUBIN,TOTAL 0.4 MG/DL (0.2-1.0); BLOOD UREA NITROGEN 12 MG/DL (7-18); CALCIUM LEVEL 10.3 MG/DL (8.8-10.2); CARBON DIOXIDE LEVEL 28 MEQ/L (21-32); CHLORIDE LEVEL 106 MEQ/L (98-107); CREATININE FOR GFR 0.97 MG/DL (0.55-1.30); GLOMERULAR FILTRATION RATE > 60.0 (>45); GLUCOSE, FASTING 117 MG/DL (70-100); SODIUM LEVEL 139 MEQ/L (136-145); TOTAL PROTEIN 7.4 GM/DL (6.4-8.2)
[2022-04-06] MEDS ORDERED: ASPIRIN 325 MG TAB PO ONE (20:55)
[2022-04-06] MEDS: HumaLOG INSULIN (NovoLOG) PER UNIT SC SCH (21:00)
[2022-04-06] MEDS ORDERED: ATORVASTATIN 20 MG TAB PO SCH (21:00)
[2022-04-06] MEDS ORDERED: HOME MED LIST COMPLETE! XX SCH (21:15)
[2022-04-06 22:10] LABS: RSV AMPLIFICATION NEGATIVE (NEGATIVE)
[2022-04-06] MEDS ORDERED: DEXTROSE 50% 50 ML SYRINGE IV PRN (22:10)
[2022-04-06] MEDS ORDERED: GLUCOSE 4GM CHEW TABLET PO PRN (22:10)
[2022-04-06] MEDS ORDERED: GLUCAGON INJ 1MG VIAL SC PRN (22:10)
[2022-04-06 22:42] LABS: INR 0.94
[2022-04-06 22:45] LABS: CHOLESTEROL LEVEL 197 MG/DL (<200); CHOLESTEROL RISK RATIO 3.517 (<5); HDL CHOLESTEROL 56 MG/DL (>40); LDL CHOLESTEROL 101 MG/DL (<100); NON-HDL-C 141 MG/DL; TRIGLYCERIDES LEVEL 199 MG/DL (<150)
[2022-04-07] VITALS (9 sets, daily range): BP systolic 109–140; BP diastolic 56–71
[2022-04-07] MEDS: LEVOTHYROXINE 50MCG TABLET (0.05MG) PO SCH (05:30)
[2022-04-07] MEDS: HumaLOG INSULIN (NovoLOG) PER UNIT SC SCH ×4 (08:38→20:50)
[2022-04-07] MEDS: ENOXAPARIN 40MG/0.4ML SYRINGE (J1650 PER 10MG) SC SCH (08:38)
[2022-04-07] MEDS: ASPIRIN 81 MG CHEW TABLET PO SCH (08:39)
[2022-04-07] MEDS ORDERED: ATOR40TA75 PO (12:12)
[2022-04-07] MEDS ORDERED: ASPI81CH8 PO (12:12)
[2022-04-07] MEDS ORDERED: ATORVASTATIN 20 MG TAB PO SCH (21:00)
[2022-04-08] VITALS: BP 115/54
[2022-04-08 04:00] VITALS: BP 116/53
[2022-04-08] MEDS: LEVOTHYROXINE 50MCG TABLET (0.05MG) PO SCH (06:25)
[2022-04-08 08:00] VITALS: BP_SYST 114; BP_SYST 120; BP_DIAS 59; BP_DIAS 68
[2022-04-08] MEDS: ASPIRIN 81 MG CHEW TABLET PO SCH (09:17)
[2022-04-08] MEDS: ENOXAPARIN 40MG/0.4ML SYRINGE (J1650 PER 10MG) SC SCH (09:17)
[2022-04-08] MEDS: HumaLOG INSULIN (NovoLOG) PER UNIT SC SCH (09:18)
[2022-04-08] MEDS ORDERED: ASPI-1 PO (09:31)
== END 2022-04-08 10:24 | disposition home or self-care (01) | DRG 66 ==
LOC: M ED 15:05 → M ED INP 22:10 → M PCU 23:10
PROVIDERS: ADMIT Family Medicine; ATTEND Internal Medicine
DX: I63.9 Cerebral infarction, unspecified (principal); E78.5 Hyperlipidemia, unspecified; E11.9 Type 2 diabetes mellitus without complications; E03.9 Hypothyroidism, unspecified; F17.200 Nicotine dependence, unspecified, uncomplicated; Z85.048 Personal history of other malignant neoplasm of rectum, rectosigmoid junction, and anus; Z85.828 Personal history of other malignant neoplasm of skin; Z79.82 Long term (current) use of aspirin; Z79.899 Other long term (current) drug therapy

== ENCOUNTER → 2022-08-10 | Outpatient (REF) | payer MEDICARE, OTHER ==
[~2022-08-10] MED LIST changes: +ASPI-1 PO; +ASPI81CH8 PO; +ATOR40TA75 PO
[2022-08-10 15:45] LABS: ALBUMIN 3.8 GM/DL (3.2-5.2); ALT/SGPT 30 U/L (12-78); BILIRUBIN,TOTAL 0.5 MG/DL (0.2-1.0); BLOOD UREA NITROGEN 12 MG/DL (7-18); CALCIUM LEVEL 9.6 MG/DL (8.8-10.2); CARBON DIOXIDE LEVEL 28 MEQ/L (21-32); CHLORIDE LEVEL 106 MEQ/L (98-107); CHOLESTEROL LEVEL 181 MG/DL (<200); CHOLESTEROL RISK RATIO 3.851 (<5); CREATININE FOR GFR 0.98 MG/DL (0.55-1.30); GLOMERULAR FILTRATION RATE > 60.0 (>45); GLUCOSE, FASTING 144 MG/DL (70-100); HDL CHOLESTEROL 47 MG/DL (>40); LDL CHOLESTEROL 103 MG/DL (<100); NON-HDL-C 134 MG/DL; POTASSIUM SERUM 4.8 MEQ/L (3.5-5.1); SODIUM LEVEL 138 MEQ/L (136-145); TOTAL PROTEIN 6.8 GM/DL (6.4-8.2); TRIGLYCERIDES LEVEL 155 MG/DL (<150)
== END ==
LOC: M SFHCADAM 08:35
PROVIDERS: ATTEND Physician Assistant Medical
DX: E78.2 Mixed hyperlipidemia (principal); E03.9 Hypothyroidism, unspecified; E11.65 Type 2 diabetes mellitus with hyperglycemia

== ENCOUNTER → 2023-01-22 | Outpatient (CLI) | payer MEDICARE, OTHER | LOC: M WHC 09:43 | PROVIDERS: ATTEND Physician Assistant Medical | DX: Z12.31 Encounter for screening mammogram for malignant neoplasm of breast (principal); M81.0 Age-related osteoporosis without current pathological fracture; M85.89 Other specified disorders of bone density and structure, multiple sites ==

== ENCOUNTER → 2023-02-09 | Outpatient (REF) | payer MEDICARE, OTHER ==
[2023-02-09 13:46] LABS: ALKALINE PHOSPHATASE 71 U/L (46-116); ALT/SGPT 32 U/L (7.0-40); AST/SGOT 23 U/L (<34); BILIRUBIN,TOTAL 0.8 MG/DL (0.3-1.2); BLOOD UREA NITROGEN 13 MG/DL (9-23); CARBON DIOXIDE LEVEL 26 MMOL/L (20-31); CHLORIDE LEVEL 104 MMOL/L (98-107); CHOLESTEROL LEVEL 141 MG/DL (<200); CHOLESTEROL RISK RATIO 2.92 (<5); CREATININE FOR GFR 0.92 MG/DL (0.55-1.30); GLOMERULAR FILTRATION RATE > 60.0 (>45); GLUCOSE, FASTING 169 MG/DL (74-106); HDL CHOLESTEROL 48.2 MG/DL (>40); LDL CHOLESTEROL 60.2 MG/DL (<100); NON-HDL-C 92.8 MG/DL; POTASSIUM SERUM 4.5 MMOL/L (3.5-5.1); SODIUM LEVEL 138 MMOL/L (136-145); THYROID STIMULATING HORMONE 5.043 uIU/ML (0.55-4.78); TOTAL 25(OH) VITAMIN D 52.3 NG/ML (20.0-100.0); TOTAL PROTEIN 6.5 G/DL (5.7-8.2); TRIGLYCERIDES LEVEL 163 MG/DL (<150)
[2023-02-09 13:48] LABS: BASO # 0.1 10^3/uL (0.0-0.2); BASO % 1.4 % (0.0-1.0); EOS # 0.2 10^3/uL (0.0-0.5); EOS % 2.9 % (0.0-3.0); HEMATOCRIT 40.7 % (36.0-47.0); HEMOGLOBIN 13.1 g/dl (12.0-15.5); LYMPH # 2.3 10^3/uL (1.5-5.0); LYMPH % 34.8 % (24.0-44.0); MEAN CORPUSCULAR HEMOGLOBIN 31.8 pg (27.0-33.0); MEAN CORPUSCULAR HGB CONC 32.2 g/dl (32.0-36.5); MEAN CORPUSCULAR VOLUME 98.8 fl (80.0-96.0); MONO # 0.6 10^3/uL (0.0-0.8); MONO % 8.7 % (2.0-8.0); NEUTROPHILS # 3.4 10^3/uL (1.5-8.5); NEUTROPHILS % 51.9 % (36.0-66.0); PLATELET COUNT, AUTOMATED 236 10^3/uL (150-450); RED BLOOD COUNT 4.12 10^6/uL (4.00-5.40); WHITE BLOOD COUNT 6.6 10^3/uL (4.0-10.0)
[2023-02-09 13:55] LABS: HEMOGLOBIN A1c 9.1 % (4.0-6.0)
[2023-02-09 14:00] LABS: THYROID PEROXIDASE ANTIBODY > 1300.0 U/ML (<60.0)
[2023-02-09 14:06] LABS: CREATININE, URINE 189.9 MG/DL; MAU/CREAT RATIO 18.9 MCG/MG (0.0-30.0)
== END ==
LOC: M SFHCADAM 09:18
PROVIDERS: ATTEND Physician Assistant Medical
DX: E78.2 Mixed hyperlipidemia (principal); M81.0 Age-related osteoporosis without current pathological fracture; E55.9 Vitamin D deficiency, unspecified; E03.9 Hypothyroidism, unspecified

== ENCOUNTER → 2023-05-18 | Outpatient (REF) | payer MEDICARE, OTHER ==
[2023-05-18 13:54] LABS: HEMOGLOBIN A1c 8.5 % (4.0-6.0)
== END ==
LOC: M SFHCADAM 08:34
PROVIDERS: ATTEND Physician Assistant Medical
DX: E03.9 Hypothyroidism, unspecified (principal); E11.65 Type 2 diabetes mellitus with hyperglycemia

== ENCOUNTER → 2023-10-13 | Outpatient (REF) | payer MEDICARE, OTHER ==
[2023-10-13 15:10] LABS: ALBUMIN 3.9 G/DL (3.2-5.2); ALKALINE PHOSPHATASE 153 U/L (46-116); ALT/SGPT 34 U/L (7.0-40); AST/SGOT 21 U/L (<34); BILIRUBIN,TOTAL 0.7 MG/DL (0.3-1.2); BLOOD UREA NITROGEN 13 MG/DL (9-23); CALCIUM LEVEL 9.8 MG/DL (8.3-10.6); CARBON DIOXIDE LEVEL 25 MMOL/L (20-31); CHLORIDE LEVEL 106 MMOL/L (98-107); CHOLESTEROL LEVEL 157 MG/DL (<200); CHOLESTEROL RISK RATIO 3.03 (<5); CREATININE FOR GFR 0.75 MG/DL (0.55-1.30); GLOMERULAR FILTRATION RATE > 60.0 (>45); GLUCOSE, FASTING 121 MG/DL (74-106); HDL CHOLESTEROL 51.8 MG/DL (>40); NON-HDL-C 105.2 MG/DL; POTASSIUM SERUM 4.8 MMOL/L (3.5-5.1); SODIUM LEVEL 142 MMOL/L (136-145); TOTAL PROTEIN 6.9 G/DL (5.7-8.2); TRIGLYCERIDES LEVEL 156 MG/DL (<150)
[2023-10-13 15:12] LABS: THYROID STIMULATING HORMONE 3.767 uIU/ML (0.55-4.78)
[2023-10-13 16:02] LABS: HEMOGLOBIN A1c 6.5 % (4.0-6.0)
== END ==
LOC: M SFHCADAM 08:44
PROVIDERS: ATTEND Physician Assistant Medical
DX: E03.9 Hypothyroidism, unspecified (principal); E11.65 Type 2 diabetes mellitus with hyperglycemia

== ENCOUNTER → 2024-04-11 | Outpatient (REF) | payer MEDICARE, OTHER ==
[2024-04-11 14:27] LABS: ALBUMIN 3.9 G/DL (3.2-5.2); ALKALINE PHOSPHATASE 95 U/L (46-116); ALT/SGPT 45 U/L (7.0-40); AST/SGOT 28 U/L (<34); BILIRUBIN,TOTAL 0.6 MG/DL (0.3-1.2); BLOOD UREA NITROGEN 16 MG/DL (9-23); CALCIUM LEVEL 9.7 MG/DL (8.3-10.6); CARBON DIOXIDE LEVEL 26 MMOL/L (20-31); CHLORIDE LEVEL 107 MMOL/L (98-107); CHOLESTEROL LEVEL 161 MG/DL (<200); CHOLESTEROL RISK RATIO 3.61 (<5); CREATININE FOR GFR 0.91 MG/DL (0.55-1.30); GLOMERULAR FILTRATION RATE > 60.0 (>45); GLUCOSE, FASTING 140 MG/DL (74-106); HDL CHOLESTEROL 44.5 MG/DL (>40); LDL CHOLESTEROL 83.3 MG/DL (<100); NON-HDL-C 116.5 MG/DL; POTASSIUM SERUM 4.7 MMOL/L (3.5-5.1); SODIUM LEVEL 142 MMOL/L (136-145); TOTAL PROTEIN 6.7 G/DL (5.7-8.2); TRIGLYCERIDES LEVEL 166 MG/DL (<150)
[2024-04-11 14:29] LABS: THYROID STIMULATING HORMONE 3.881 uIU/ML (0.55-4.78); TOTAL 25(OH) VITAMIN D 48.8 NG/ML (20.0-100.0)
[2024-04-11 14:30] LABS: FREE T4 1.11 NG/DL (0.89-1.76)
[2024-04-11 14:52] LABS: HEMOGLOBIN A1c 7.8 % (4.0-6.0)
== END ==
LOC: M SFHCADAM 09:06
PROVIDERS: ATTEND Physician Assistant Medical
DX: E11.65 Type 2 diabetes mellitus with hyperglycemia (principal); E03.9 Hypothyroidism, unspecified; E55.9 Vitamin D deficiency, unspecified

== ENCOUNTER → 2024-10-12 | Outpatient (REF) | payer MEDICARE, OTHER ==
[2024-10-12 12:59] LABS: BASO # 0.1 10^3/uL (0.0-0.2); EOS # 0.2 10^3/uL (0.0-0.5); EOS % 2.8 % (0.0-3.0); HEMATOCRIT 44.6 % (36.0-47.0); HEMOGLOBIN 14.1 g/dl (12.0-15.5); LYMPH # 2.4 10^3/uL (1.5-5.0); LYMPH % 34.4 % (24.0-44.0); MEAN CORPUSCULAR HEMOGLOBIN 32.1 pg (27.0-33.0); MEAN CORPUSCULAR HGB CONC 31.6 g/dl (32.0-36.5); MEAN CORPUSCULAR VOLUME 101.6 fl (80.0-96.0); MONO # 0.6 10^3/uL (0.0-0.8); NEUTROPHILS # 3.7 10^3/uL (1.5-8.5); NEUTROPHILS % 52.4 % (36.0-66.0); PLATELET COUNT, AUTOMATED 246 10^3/uL (150-450); RED BLOOD COUNT 4.39 10^6/uL (4.00-5.40); WHITE BLOOD COUNT 7.1 10^3/uL (4.0-10.0)
[2024-10-12 13:04] LABS: THYROID STIMULATING HORMONE 4.358 uIU/ML (0.55-4.78); TOTAL 25(OH) VITAMIN D 41.5 NG/ML (20.0-100.0)
[2024-10-12 13:05] LABS: ALBUMIN 3.9 G/DL (3.2-5.2); ALKALINE PHOSPHATASE 84 U/L (35-104); ALT/SGPT 36 U/L (7.0-40); AST/SGOT 21 U/L (<34); BILIRUBIN,TOTAL 0.5 MG/DL (0.3-1.2); BLOOD UREA NITROGEN 17 MG/DL (9-23); CALCIUM LEVEL 9.8 MG/DL (8.3-10.6); CARBON DIOXIDE LEVEL 28 MMOL/L (20-31); CHLORIDE LEVEL 106 MMOL/L (98-107); CHOLESTEROL LEVEL 160 MG/DL (<200); CHOLESTEROL RISK RATIO 3.85 (<5); CREATININE FOR GFR 0.73 MG/DL (0.55-1.30); GLOMERULAR FILTRATION RATE > 60.0 (>45); GLUCOSE, FASTING 169 MG/DL (74-106); HDL CHOLESTEROL 41.5 MG/DL (>40); LDL CHOLESTEROL 82.9 MG/DL (<100); NON-HDL-C 118.5 MG/DL; SODIUM LEVEL 141 MMOL/L (136-145); TOTAL PROTEIN 6.9 G/DL (5.7-8.2); TRIGLYCERIDES LEVEL 178 MG/DL (<150)
[2024-10-12 13:18] LABS: HEMOGLOBIN A1c 8.1 % (4.0-6.0)
== END ==
LOC: M SFHCADAM 08:11
PROVIDERS: ATTEND Physician Assistant Medical
DX: E03.9 Hypothyroidism, unspecified (principal); E11.65 Type 2 diabetes mellitus with hyperglycemia; E55.9 Vitamin D deficiency, unspecified

== ENCOUNTER → 2024-10-19 | Outpatient (REF) | payer MEDICARE, OTHER ==
[2024-10-19 14:09] LABS: CREATININE, URINE 56.3 MG/DL
[2024-10-19 14:10] LABS: MAU/CREAT RATIO 24.8 MCG/MG (0.0-30.0)
== END ==
LOC: M SFHCADAM 12:41
PROVIDERS: ATTEND Physician Assistant Medical
DX: E11.65 Type 2 diabetes mellitus with hyperglycemia (principal)

== ENCOUNTER 2025-04-02 06:34 | Day surgery (SDC) | payer MEDICARE, OTHER ==
[~2025-04-02] VITALS: Ht 170.2 cm; Wt 77.6 kg
[~2025-04-02 06:34] MED LIST changes: +ASPI81CH48 PO; +FARX1TAB3 PO; +GLIP2.5T46 PO; +LEVO75TA4 PO; +METF10004 PO
[2025-04-02] MEDS ORDERED: LIDOCAINE 2% 100MG/5ML SDV (FOR ANES.) As Ordered ONE (07:30)
[2025-04-02] MEDS ORDERED: propofoL 200 MG/20 ML VIAL As Ordered ONE (07:30)
[2025-04-02 07:57] VITALS: TEMP 97
[2025-04-02 08:15] VITALS: BP 104/52; O2SAT 97
== END 2025-04-02 08:20 | disposition home or self-care (01) ==
LOC: M OPP 06:34
PROVIDERS: ATTEND Internal Medicine Gastroenterology
DX: D12.2 Benign neoplasm of ascending colon (principal); K64.8 Other hemorrhoids; Z98.0 Intestinal bypass and anastomosis status; Z85.038 Personal history of other malignant neoplasm of large intestine; Z86.73 Personal history of transient ischemic attack (TIA), and cerebral infarction without residual deficits; Z79.82 Long term (current) use of aspirin; Z79.84 Long term (current) use of oral hypoglycemic drugs; Z87.891 Personal history of nicotine dependence

== ENCOUNTER → 2025-04-17 | Outpatient (REF) | payer MEDICARE, OTHER ==
[2025-04-17 13:31] LABS: BASO # 0.1 10^3/uL (0.0-0.2); BASO % 0.8 % (0.0-1.0); EOS # 0.2 10^3/uL (0.0-0.5); EOS % 2.4 % (0.0-3.0); HEMATOCRIT 45.5 % (36.0-47.0); HEMOGLOBIN 14.4 g/dl (12.0-15.5); LYMPH # 2.6 10^3/uL (1.5-5.0); LYMPH % 33.8 % (24.0-44.0); MEAN CORPUSCULAR HEMOGLOBIN 31.7 pg (27.0-33.0); MEAN CORPUSCULAR HGB CONC 31.6 g/dl (32.0-36.5); MEAN CORPUSCULAR VOLUME 100.2 fl (80.0-96.0); MONO # 0.6 10^3/uL (0.0-0.8); MONO % 8.2 % (2.0-8.0); NEUTROPHILS # 4.1 10^3/uL (1.5-8.5); NEUTROPHILS % 54.4 % (36.0-66.0); PLATELET COUNT, AUTOMATED 271 10^3/uL (150-450); RED BLOOD COUNT 4.54 10^6/uL (4.00-5.40); WHITE BLOOD COUNT 7.6 10^3/uL (4.0-10.0)
[2025-04-17 13:36] LABS: THYROID STIMULATING HORMONE 3.585 uIU/ML (0.55-4.78); TOTAL 25(OH) VITAMIN D 57.4 NG/ML (20.0-100.0)
[2025-04-17 13:39] LABS: BILIRUBIN,TOTAL 0.4 MG/DL (0.3-1.2); CALCIUM LEVEL 10.2 MG/DL (8.3-10.6); CHOLESTEROL RISK RATIO 3.43 (<5); CREATININE FOR GFR 0.8 MG/DL (0.55-1.30); GLOMERULAR FILTRATION RATE 80.2 (>45); HDL CHOLESTEROL 44.3 MG/DL (>40); LDL CHOLESTEROL 68.7 MG/DL (<100); NON-HDL-C 107.7 MG/DL; POTASSIUM SERUM 4.6 MMOL/L (3.5-5.1); TOTAL PROTEIN 7.2 G/DL (5.7-8.2)
[2025-04-17 13:53] LABS: HEMOGLOBIN A1c 8.2 % (4.0-6.0)
== END ==
LOC: M SFHCADAM 08:14
PROVIDERS: ATTEND Physician Assistant Medical
DX: E11.65 Type 2 diabetes mellitus with hyperglycemia (principal); E03.9 Hypothyroidism, unspecified; E78.2 Mixed hyperlipidemia; E55.9 Vitamin D deficiency, unspecified

== ENCOUNTER → 2025-07-04 | Outpatient (REF) | payer MEDICARE, OTHER | LOC: M LAB REF 16:32 | PROVIDERS: ATTEND Surgery | DX: L72.3 Sebaceous cyst (principal) ==

== ENCOUNTER → 2025-08-27 | Outpatient (CLI) | payer MEDICARE, OTHER | LOC: M WHC 13:22 | PROVIDERS: ATTEND Physician Assistant Medical | DX: Z12.31 Encounter for screening mammogram for malignant neoplasm of breast (principal); M81.0 Age-related osteoporosis without current pathological fracture; R92.323 Mammographic fibroglandular density, bilateral breasts ==

== ENCOUNTER → 2025-09-11 | Outpatient (CLI) | payer MEDICARE, OTHER | LOC: M ADAMS 09:38 | PROVIDERS: ATTEND Physician Assistant Medical | DX: M19.011 Primary osteoarthritis, right shoulder (principal); M25.511 Pain in right shoulder ==

== ENCOUNTER → 2025-10-22 | Outpatient (REF) | payer MEDICARE, OTHER ==
[2025-10-22 14:25] LABS: BASO # 0.1 10^3/uL (0.0-0.2); BASO % 0.9 % (0.0-1.0); EOS # 0.2 10^3/uL (0.0-0.5); EOS % 2.5 % (0.0-3.0); LYMPH # 2.6 10^3/uL (1.5-5.0); LYMPH % 31.1 % (24.0-44.0); MONO # 0.7 10^3/uL (0.0-0.8); MONO % 8.3 % (2.0-8.0); NEUTROPHILS # 4.8 10^3/uL (1.5-8.5); NEUTROPHILS % 56.8 % (36.0-66.0); PLATELET COUNT, AUTOMATED 261 10^3/uL (150-450)
[2025-10-22 14:30] LABS: ALT/SGPT 46.0 U/L (7.0-40); AST/SGOT 38.0 U/L (<34); CALCIUM LEVEL 9.6 MG/DL (8.3-10.6); CARBON DIOXIDE LEVEL 28.0 MMOL/L (20-31); CHLORIDE LEVEL 103.0 MMOL/L (98-107); CHOLESTEROL LEVEL 171.0 MG/DL (<200); CHOLESTEROL RISK RATIO 3.28 (<5); CREATININE FOR GFR 0.77 MG/DL (0.55-1.30); GLOMERULAR FILTRATION RATE 84.0 (>45); LDL CHOLESTEROL 84.2 MG/DL (<100); NON-HDL-C 119.0 MG/DL; POTASSIUM SERUM 4.8 MMOL/L (3.5-5.1); SODIUM LEVEL 142.0 MMOL/L (136-145); TRIGLYCERIDES LEVEL 174.0 MG/DL (<150)
[2025-10-22 14:33] LABS: FREE T4 1.31 NG/DL (0.89-1.76)
[2025-10-22 14:34] LABS: TOTAL 25(OH) VITAMIN D 41.7 NG/ML (20.0-100.0)
[2025-10-22 14:42] LABS: ESTIMATED AVERAGE GLUCOSE 209.0 MG/DL (60-110)
[2025-10-22 14:50] LABS: CREATININE, URINE 87.0 MG/DL
[2025-10-22 14:51] LABS: MALB URINE SIEMENS 23.0 MG/L; MAU/CREAT RATIO 26.4 MCG/MG (0.0-30.0)
== END ==
LOC: M SFHCADAM 07:54
PROVIDERS: ATTEND Physician Assistant Medical
DX: E11.65 Type 2 diabetes mellitus with hyperglycemia (principal); E03.9 Hypothyroidism, unspecified; E78.2 Mixed hyperlipidemia; E55.9 Vitamin D deficiency, unspecified